=== PATIENT | female | born 1940 | race Caucasian/White ===

== ENCOUNTER → 2016-06-11 | Outpatient (CLI) | payer MEDICARE ==
[2016-06-11 17:48] LABS: APPEARANCE,URINE CLOUDY; BILIRUBIN,URINE SMALL (NEGATIVE); GLUCOSE, URINE NEGATIVE (NEGATIVE); KETONES,URINE NEGATIVE (NEGATIVE); LEUKOCYTE ESTERASE,URINE LARGE (NEGATIVE); NITRITE,URINE POSITIVE (NEGATIVE); PROTEIN,URINE 100 mg/dL (NEGATIVE); URINE SPECIFIC GRAVITY 1.026
== END ==
LOC: OD 14:07
PROVIDERS: ATTEND Internal Medicine
DX: N39.0 Urinary tract infection, site not specified (principal)
CPT/HCPCS: 81001; 87086; 87088; 87186

== ENCOUNTER 2016-06-20 13:33 | Observation (INO) | payer MEDICARE ==
[2016-06-20] MEDS ORDERED: NORMAL SALINE 500 ML IV PRN (14:26)
[2016-06-20 16:04] LABS: ABSOLUTE EOSINOPHILS # (AUTO) 0.1 10^3/uL (0.0-0.6); ABSOLUTE LYMPHOCYTES (AUTO) 0.7 10^3/uL (0.5-4.7); ABSOLUTE MONOCYTES (AUTO) 0.8 10^3/uL (0.1-1.4); ABSOLUTE NEUT (AUTO) 3.1 10^3/uL (1.7-8.2); BASOPHILS % (AUTO) 0.8 % (0-2); EOSINOPHILS % (AUTO) 1.1 % (0-6); HEMATOCRIT 36.8 % (36.0-47.0); HEMOGLOBIN 11.9 g/dL (12.0-15.5); HGB HCT DIFFERENCE -1.1; LYMPHOCYTES % (AUTO) 14.6 % (13-45); MEAN CORPUSCULAR HGB CONC 32.3 g/dL (32.0-36.0); MEAN CORPUSCULAR VOLUME 84 fl (80-97); MONOCYTES % (AUTO) 17.8 % (3-13); RED CELL DISTRIBUTION WIDTH 16.8 % (11.5-14.0); SEGMENTED NEUTROPHILS % (AUTO) 65.7 % (42-78); WHITE BLOOD COUNT 4.7 10^3/uL (4.0-10.5)
[2016-06-20 16:26] LABS: ALANINE AMINOTRANSFERASE 21 U/L (9-52); ALBUMIN 2.9 g/dL (3.5-5.0); ALKALINE PHOSPHATASE 94 U/L (38-126); ANION GAP 6 (5-19); ASPARTATE AMINO TRANSFERASE 12 U/L (14-36); BILIRUBIN,TOTAL 0.7 mg/dL (0.2-1.3); BLOOD UREA NITROGEN 16 mg/dL (7-20); CALCIUM 9.1 mg/dL (8.4-10.2); CARBON DIOXIDE 31 mmol/L (22-30); CHLORIDE 102 mmol/L (98-107); CREATININE RESULT 0.61 mg/dL (0.52-1.25); GLUCOSE 89 mg/dL (75-110); POTASSIUM 3.6 mmol/L (3.6-5.0); SODIUM 139.3 mmol/L (137-145); TOTAL PROTEIN 5.3 g/dL (6.3-8.2)
[2016-06-20 16:50] LABS: APPEARANCE,URINE SLIGHTLY-CLOUDY; BILIRUBIN,URINE NEGATIVE (NEGATIVE); GLUCOSE, URINE NEGATIVE (NEGATIVE); KETONES,URINE 20 mg/dL (NEGATIVE); LEUKOCYTE ESTERASE,URINE NEGATIVE (NEGATIVE); NITRITE,URINE NEGATIVE (NEGATIVE); PROTEIN,URINE 30 mg/dL (NEGATIVE); URINE SPECIFIC GRAVITY 1.024
--- NOTE | 2016-06-20 17:47 | ER Document Report ---
ED General - General Chief Complaint: General Weakness Stated Complaint: GENERAL WEAKNESS Time seen by provider: 17:39 Mode of Arrival: Medic Information source: Relative Notes: This is a 75-year-old female brought into the emergency room after being found on the floor of her home. Patient is accompanied by her granddaughter that says that the patient is been very weak, not eating, not drinking. TRAVEL OUTSIDE OF THE [place] IN LAST 30 DAYS: No - HPI Onset: Just prior to arrival Onset/Duration: Sudden Quality of pain: No pain Severity: None Pain Level: Denies Associated symptoms: denies: Chest pain, Fever Exacerbated by: Denies Relieved by: Denies Similar symptoms previously: Yes Recently seen / treated by doctor: Yes - Related Data Allergies/Adverse Reactions: ampicillin [Ampicillin] Allergy (Verified 08/26/15 22:44) codeine [Codeine] Allergy (Verified 08/26/15 22:44) flurazepam HCl [From [place]] Allergy (Verified 08/26/15 22:44) Home Medications: Current Home Medications Atorvastatin Calcium [Lipitor 10 mg Tablet] 10 mg PO DAILY 06/20/16 [History] Cetirizine HCl [Zyrtec 10 mg Tablet] 1 tab PO PRN PRN 06/20/16 [History] Dexlansoprazole [Dexilant 60 mg Capsule] 60 mg PO DAILY 06/20/16 [History] Escitalopram Oxalate [Lexapro 10 mg Tablet] 10 mg PO DAILY 06/20/16 [History] Fentanyl [Duragesic 50 Mcg/Hr Transdermal Patch] 1 each TD Q3D 06/20/16 [History ] Gabapentin [Neurontin 300 mg Capsule] 300 mg PO DAILY 06/20/16 [History] Gabapentin [Neurontin 300 mg Capsule] 600 mg PO QPM 06/20/16 [History] Ibandronate Sodium [Boniva] 150 mg PO ASDIR 06/20/16 [History] Mirtazapine 7.5 mg PO QHS 06/20/16 [History] Nitrofurantoin Monohyd/M-Cryst [Nitrofurantoin [place]-Mcr 100 mg] 100 mg PO BID [History] Risperidone 4 mg PO QHS 06/20/16 [History] Rivaroxaban [Xarelto 10 mg Tablet] 10 mg PO BID 06/20/16 [History] Sulfamethoxazole/Trimethoprim [Bactrim Ds Tablet] 1 each PO DAILY 06/20/16 [ History] Tolterodine Tartrate [Detrol] 2 mg PO BID 06/20/16 [History] Trazodone HCl [Desyrel 50 mg Tablet] 50 mg PO HSP PRN 06/20/16 [History] Umeclidinium Brm/Vilanterol Tr [Anoro Ellipta 62.5-25 Mcg INH] 1 each IH DAILY 06/20/16 [History] Past Medical History - General Information source: Patient - Social History Smoking Status: Never Smoker Cigarette use (# per day): No Chew tobacco use (# tins/day): No Frequency of alcohol use: None Drug Abuse: None Lives with: Family Family History: Reviewed & Not Pertinent - Past Medical History Cardiac Medical History: Reports: Hx Congestive Heart Failure, Hx Hypercholesterolemia Pulmonary Medical History: Reports: Hx Bronchitis, Hx COPD GI Medical History: Reports: Hx Gastroesophageal Reflux Disease, Hx Hiatal Hernia Musculoskeltal Medical History: Reports Hx Arthritis Psychiatric Medical History: Reports: Hx Depression Past Surgical History: Reports: Hx Appendectomy, Hx Cardiac Surgery - Bypass x5 , Hx Cholecystectomy, Hx Hysterectomy - Immunizations Hx Diphtheria, Pertussis, Tetanus Vaccination: No Review of Systems - Review of Systems Notes: Review of systems: Constitutional: Denies fever, chills. EENT: Denies ear pain, sinus tenderness, throat pain, throat swelling. Cardiovascular: Denies chest pain, palpitations, dyspnea or edema. Respiratory: Denies wheezing, cough, hemoptysis. Abdomen: Denies abdominal pain, nausea, vomiting, diarrhea. Denies BRBPR or melena. Genitourinary: Denies dysuria, pyuria, hematuria, flank pain. Musculoskeletal: See H&P Neurologic: See H&P Skin: Denies rash, lesions. Physical Exam - Vital signs Vitals: Temp Pulse Resp BP Pulse Ox 98.3 F 90 18 132/82 H 96 06/20/16 22:18 06/20/16 22:18 06/20/16 22:18 06/20/16 22:18 06/20/16 22:18 Notes: Physical exam: GENERAL: This is a 75-year-old female that is lying in the stretcher, appears dehydrated, appears weak. She is alert and does talk. HEAD: Atraumatic, normocephalic. EYES: Pupils equal round and reactive to light, extraocular movements intact, sclera anicteric, conjunctiva are normal. ENT: TMs normal, nares patent, oropharynx clear without exudates. Moist mucous membranes. NECK: Patient does have torticollis in her neck which apparently is baseline. LUNGS: Breath sounds clear to auscultation bilaterally and equal. No wheezes rales or rhonchi. HEART: Regular rate and rhythm without murmurs, rubs or gallops. ABDOMEN: Soft, normoactive bowel sounds. No tenderness to palpation. No guarding, no rebound. No masses appreciated. EXTREMITIES: Left chronic knee wound which is dry and intact. Chronic 1+ edema bilaterally. She does have a hematoma over the right knee. NEUROLOGICAL: Cranial nerves II through XII grossly intact. PSYCH: Very weak in appearance SKIN: As noted above. Course - Vital Signs Vital signs: Temp Pulse Resp BP Pulse Ox 98.3 F 90 18 132/82 H 96 06/20/16 22:18 06/20/16 22:18 06/20/16 22:18 06/20/16 22:18 06/20/16 22:18 - Laboratory Result Diagrams: 06/20/16 15:42 06/20/16 15:42 Laboratory results interpreted by me: 06/20/16 06/20/16 06/20/16 15:42 15:42 15:42 Hgb 11.9 L RDW 16.8 H Monocytes % 17.8 H PT 16.0 H Carbon Dioxide 31 H AST 12 L Total Protein 5.3 L Albumin 2.9 L Vitamin B12 Urine Protein Urine Ketones Urine Urobilinogen 06/20/16 06/20/16 15:42 16:25 Hgb RDW Monocytes % PT Carbon Dioxide AST Total Protein Albumin Vitamin B12 160.0 L Urine Protein 30 H Urine Ketones 20 H Urine Urobilinogen 2.0 H Discharge - Discharge Clinical Impression: generalized weakness, fall Condition: Stable Disposition: ADMITTED OBSERVATION Admitting Provider: Hospitalist - Dr. Alba
[2016-06-20] MEDS ORDERED: IPRATROPIUM/ALBUTEROL 0.5-2.5 MG/3 ML AMPUL NEB PRN (18:34)
[2016-06-20] MEDS ORDERED: ONDANSETRON HCL INJ/PF 4 MG/2 ML SDV IV PRN (18:39)
[2016-06-20] MEDS ORDERED: MAGNESIUM HYDROXIDE SUSP 30 ML UDCUP PO PRN (18:39)
[2016-06-20 19:16] LABS: MAGNESIUM 1.9 mg/dL (1.6-2.3); PHOSPHORUS 3.2 mg/dL (2.5-4.5)
[2016-06-20 19:27] LABS: CREATINE KINASE MB 0.55 ng/mL (<4.55); TROPONIN I < 0.012 ng/mL
--- NOTE | 2016-06-20 19:32 | PDOC H&P ---
History of Present Illness Admission Date/PCP: PMA WEBB, Patient complains of: Weakness History of Present Illness: ANGELIC HOUGH is a 75 year old female presents from home by EMS after several falls over the last couple of days. She states she's getting progressively weaker. She normally lives at home and is wheelchair bound but able to transition from [id number] and then ambulate her wheelchair around the house. She states in doing so 2 days ago she missed the chair and fell onto her knees and had to call for help to get back up. She refuses come to Hospital at that time. She is just finishing a course of antibiotics for urinary tract infection diagnosed in mid May and states ever since starting the antibiotics her appetite has been very poor. Over the last 24 hours she's had very little oral intake. She denies abdominal pain, nausea, vomiting or diarrhea. She denies chest pain, shortness of breath, syncope or presyncope, numbness tingling, unilateral weakness, difficulty swallowing, headache or vision changes. Evaluation in the emergency department is largely unrevealing but the patient is too weak to be able to transition back home to independent living so we were asked to admit for further evaluation of her weakness. Past Medical History Cardiac Medical History: Reports: Congestive Heart Failure, Hyperlipidema Pulmonary Medical History: Reports: Bronchitis, Chronic Obstructive Pulmonary Disease (COPD) GI Medical History: Reports: Gastroesophageal Reflux Disease, Hiatal Hernia Musculoskeltal Medical History: Reports: Arthritis Psychiatric Medical History: Reports: Depression Hematology: Reports: Anemia Past Surgical History Past Surgical History: Reports: Appendectomy, Cholecystectomy, Hysterectomy, Orthopedic Surgery - Knee surgery Social History Information Source: Patient Lives with: Alone Smoking Status: Unknown if Ever Smoked Frequency of Alcohol Use: None Hx Recreational Drug Use: No Drugs: None Hx Prescription Drug Abuse: No - Advance Directive Resuscitation Status: Full Code Family History Family History: Reviewed & Not Pertinent Parental Family History Reviewed: Yes Children Family History Reviewed: Yes Sibling(s) Family History Reviewed.: Yes Medication/Allergy Home Medications: Dexlansoprazole [Dexilant 60 mg Capsule] 60 mg PO DAILY 06/02/15 Olopatadine HCl [Pataday] 2.5 ml OP DAILY 06/02/15 Tiotropium [place] [Spiriva Handihaler 18 mcg/dose (30 Dose)] 1 cap IH DAILY 09/10 Atorvastatin Calcium [Lipitor 10 mg Tablet] 10 mg PO QHS #0 tablet 06/14/15 Budesonide/Formoterol Fumarate [Symbicort HFA 160-4.5 mcg Inhaler 6 gm] 2 puff IH Q12 #0 inhaler 06/14/15 Cetirizine HCl [Zyrtec 10 mg Tablet] 10 mg PO DAILY #0 tablet 06/14/15 Rivaroxaban [Xarelto 10 mg Tablet] 10 mg PO BID 07/12/15 Fentanyl [Duragesic 100 Mcg/Hr Transdermal Patch] 1 each TD Q3D@10 patch.td72 07/16/15 Fentanyl [Duragesic 50 Mcg/Hr Transdermal Patch] 1 each TD Q3D@10 patch.td72 Cyclosporine 0.05% Oph Emulsio [Restasis 0.05% Oph Emulsion Pf 0.4 ml] 2 drop OU BID 08/26/15 Hydromorphone HCl [Dilaudid 2 mg Tablet] 2 mg PO Q6 08/26/15 Trazodone HCl [Desyrel 50 mg Tablet] 50 mg PO DAILY 08/26/15 Metronidazole [Flagyl 500 mg Tablet] 500 mg PO BID #14 tablet 09/21/15 Allergies/Adverse Reactions: ampicillin [Ampicillin] Allergy (Verified 08/26/15 22:44) codeine [Codeine] Allergy (Verified 08/26/15 22:44) flurazepam HCl [From Dalmane] Allergy (Verified 08/26/15 22:44) Review of Systems Constitutional: PRESENT: fatigue, weakness. ABSENT: chills, fever(s), headache( s), night sweats, weight gain, weight loss Eyes: ABSENT: visual disturbances Ears: ABSENT: hearing changes Cardiovascular: ABSENT: chest pain, dyspnea on exertion, edema, orthropnea, palpitations Respiratory: ABSENT: cough, dyspnea, hemoptysis Gastrointestinal: ABSENT: abdominal pain, constipation, diarrhea, dysphagia, hematemesis, hematochezia, nausea, vomiting Genitourinary: ABSENT: dysuria, hematuria Musculoskeletal: PRESENT: as per HPI, joint swelling - Swelling of both knees after her fall, muscle weakness Integumentary: ABSENT: rash, wounds Neurological: PRESENT: frequent falls. ABSENT: abnormal gait, abnormal speech, confusion, dizziness, focal weakness, numbness, paresthesias, syncope Psychiatric: ABSENT: anxiety, depression Endocrine: ABSENT: cold intolerance, heat intolerance, polydipsia, polyuria Hematologic/Lymphatic: PRESENT: easy bruising. ABSENT: easy bleeding Physical Exam Vital Signs: PHYSICAL EXAM GENERAL: NAD; well developed; some muscle wasting noted of the extremities; alert and oriented to person, place, time, situation, speaks in a very soft voice HEENT: normocephalic, atraumatic; EOMI, PERRLA, no conjunctival injection, no scleral icterus; oral mucosa dry, neck supple, no LAD, normal ROM RESPIRATORY: no accessory muscle use, no increased WOB, good air entry bilaterally; no wheezes, rales, rhonchi; mild bibasilar inspiratory crackles CARDIO: no JVD; RRR; no systolic murmur; no tachycardia VASCULAR: no pallor; 2+ radial, DP pulse; GI: soft; nondistended; normal bowel sounds; no hepato spleno megaly; no rebound, rigidity, guarding; nontender NEURO: normal sensation; decreased motor function bilaterally legs strength 2 out of 5; nonambulatory; no dysarthria; no nystagmus; tongue protrudes midline; MSK: Bilateral knees right greater than left are edematous; right leg from the lateral aspect of the hip down to the knee and then encompassing most of the pretibial area is quite ecchymotic appears deep purple suggesting at least 2-3 days old; left lower extremity shows old ecchymotic areas in the pretibial and calf that appear to be about a week old. No fluctuant mass or fluid collection identified. Passive range of motion elicits some discomfort in the bilateral knees right greater than left. There is crepitus palpable in the right greater than left. EXTREMITIES: no palpable cords in calf; no clubbing, cyanosis; 1+ pedal edema PSYCH: normal affect, normal mood SKIN: Cool; moist; no jaundice; no rash Results Laboratory Results: 06/20/16 15:42 06/20/16 15:42 06/20/16 06/20/16 06/20/16 15:42 15:42 16:25 WBC 4.7 RBC 4.40 Hgb 11.9 L Hct 36.8 MCV 84 MCH 27.0 MCHC 32.3 RDW 16.8 H Plt Count 311 Seg Neutrophils % 65.7 Lymphocytes % 14.6 Monocytes % 17.8 H Eosinophils % 1.1 Basophils % 0.8 Absolute Neutrophils 3.1 Absolute Lymphocytes 0.7 Absolute Monocytes 0.8 Absolute Eosinophils 0.1 Absolute Basophils 0.0 Sodium 139.3 Potassium 3.6 Chloride 102 Carbon Dioxide 31 H Anion Gap 6 BUN 16 Creatinine 0.61 Est GFR ( Amer) > 60 Est GFR (Non-Af Amer) > 60 Glucose 89 Calcium 9.1 Total Bilirubin 0.7 AST 12 L ALT 21 Alkaline Phosphatase 94 Total Protein 5.3 L Albumin 2.9 L Urine Color RADHA Urine Appearance SLIGHTLY-CLOUDY Urine pH 6.0 Ur Specific Protem 1.024 Urine Protein 30 H Urine Glucose (UA) NEGATIVE Urine Ketones 20 H Urine Blood NEGATIVE Urine Nitrite NEGATIVE Ur Leukocyte Esterase NEGATIVE Urine WBC (Auto) 1 Urine RBC (Auto) 16 Labs reviewed and relatively unremarkable Impressions: Chest X-Ray 06/20/16 14:27 IMPRESSION: Cardiomegaly. No acute findings Status: Image reviewed by me - Don't see any focal airspace disease or acute pathology Assessment & Plan - Diagnosis (1) Generalized weakness Is this a current diagnosis for this admission?: YesPlan: Admit for gentle IV fluids, physical and occupational therapy evaluation. She is too unstable for discharge home at this time, will likely require some rehabilitation. Unfortunately she has no admitting diagnosis has yet and so the [place] will fall to the family to find appropriate placement for her. Will check for metabolic derangements with a magnesium, phosphorus, B12, TSH and evaluate for CK, CK-MB and troponin. (2) Coronary artery disease Qualifiers: Coronary Disease-Associated Artery/Lesion type: [place] artery [place] vs. transplanted heart: [place] heart Associated angina: angina presence unspecified Qualified Code(s): I25.10 - Atherosclerotic heart disease of [place] coronary artery without angina pectoris Is this a current diagnosis for this admission?: YesPlan: She does not endorse any cardiac-type symptoms. Check an EKG. Clarify her home regimen and continue. (3) Decreased oral intake Is this a current diagnosis for this admission?: YesPlan: Generally hydrated. Encourage oral intake. (4) Contusion of knee and lower leg Is this a current diagnosis for this admission?: YesPlan: Check x-rays of the bilateral lower extremities to rule out occult fracture. - Time Time Spent: 50 to 70 Minutes Medications reviewed and adjusted accordingly: Yes Anticipated discharge: Other - Disposition is unclear at this time, family was not available for consultation when I saw her.
[2016-06-21] MEDS: NORMAL SALINE 1000 ML 1,000 ML IV PRN ×2 (00:26→11:18)
[2016-06-21] MEDS: ACETAMINOPHEN 325 MG TABLET PO PRN (00:31)
[2016-06-21] MEDS: LANSOPRAZOLE 30 MG TAB.RAP.DR PO SCH ×2 (05:41→17:21)
[2016-06-21] MEDS: DOCUSATE SODIUM 100 MG CAPSULE PO SCH (11:15)
[2016-06-21] MEDS ORDERED: DEXAMETHASONE SOD PHOS INJ 10 MG/1 ML VIAL IV ONE (12:15)
[2016-06-21] MEDS ORDERED: CYANOCOBALAMIN (VITAMIN B-12) INJ 1000 MCG/1 ML VIAL IM ONE (12:30)
--- NOTE | 2016-06-21 16:06 | PDOC PROGRESS REPORT ---
Subjective Progress Note for:: 06/21/16 Subjective:: Reason for visit: Follow-up weakness Hospital course:ANGELIC HOUGH is a 75 year old female presents from home by EMS after several falls over the last couple of days. She states she's getting progressively weaker. She normally lives at home and is wheelchair bound but able to transition from [id number] and then ambulate her wheelchair around the house. She states in doing so 2 days ago she missed the chair and fell onto her knees and had to call for help to get back up. She refuses come to Hospital at that time. She is just finishing a course of antibiotics for urinary tract infection diagnosed in mid May and states ever since starting the antibiotics her appetite has been very poor. Over the last 24 hours she's had very little oral intake. She denies abdominal pain, nausea, vomiting or diarrhea. She denies chest pain, shortness of breath, syncope or presyncope, numbness tingling, unilateral weakness, difficulty swallowing, headache or vision changes. Evaluation in the emergency department is largely unrevealing but the patient is too weak to be able to transition back home to independent living so we were asked to admit for further evaluation of her weakness. Patient was admitted and gently hydrated through the course of the night with little change in her general condition. Evaluation remains unrevealing aside from a very low B12 level which could be contributing to some of her presentation. Subjective: Patient continues to complain of generalized weakness and nursing reports she is largely sleeping all the time and requires 2 people assist for transfers, toileting, etc. She denies chest pain, palpitations, headache, dizziness, fever, chills, nausea vomiting or diarrhea. ROS: per HPI plus a total of 10 systems reviewed, pertinent positives and negatives noted above, remaining systems negative. Physical Exam Vital Signs: Temp Pulse Resp BP Pulse Ox 98.4 F 97 20 143/84 H 95 06/21/16 11:52 06/21/16 11:52 06/21/16 11:52 06/21/16 11:52 06/21/16 11:52 Intake & Output 06/20/16 06/21/16 06/22/16 06:59 06:59 06:59 Intake Total 200 Output Total 350 Balance -150 Weight 78.7 kg EXAM GENERAL: NAD; well developed; some muscle wasting noted of the extremities; alert and oriented to person, place, time, situation, speaks in a very soft voice HEENT: normocephalic, atraumatic; EOMI, no conjunctival injection, no scleral icterus; RESPIRATORY: no accessory muscle use, no increased WOB, good air entry bilaterally; no wheezes, rales, rhonchi; mild bibasilar inspiratory crackles persist CARDIO: no JVD; RRR; no systolic murmur; no tachycardia VASCULAR: no pallor; 2+ radial, DP pulse; GI: soft; nondistended; normal bowel sounds; no rebound, rigidity, guarding; nontender NEURO: normal sensation; decreased motor function bilaterally legs strength 2 out of 5; nonambulatory; no dysarthria; tongue protrudes midline; MSK: Bilateral knees right greater than left are edematous with small effusions in the joint space; right leg from the lateral aspect of the hip down to the knee and then encompassing most of the pretibial area remains quite ecchymotic though appears deep purple suggesting at least several days old; left lower extremity shows old ecchymotic areas in the pretibial and calf that appear at least a week old. Passive range of motion elicits some discomfort in the bilateral knees right greater than left. There is crepitus palpable in the right greater than left. EXTREMITIES: no palpable cords in calf; no clubbing, cyanosis; 1+ pedal edema PSYCH: normal affect, normal mood SKIN: Cool; moist; no jaundice; no rash Results Laboratory Results: 06/21/16 05:50 TSH 3.66 Labs reviewed and B12 level is quite low, the rest of her labs are unremarkable. Impressions: Hip X-Ray 06/20/16 00:00 IMPRESSION: No fracture or dislocation identified in the pelvis or hips. Knee X-Ray 06/20/16 00:00 IMPRESSION: No acute fracture. Small effusion. Chest X-Ray 06/20/16 14:27 IMPRESSION: Cardiomegaly. No acute findings Status: Imported from PACS - Reports reviewed Assessment & Plan - Diagnosis (1) Generalized weakness Is this a current diagnosis for this admission?: YesPlan: Admitted for gentle IV fluids, physical and occupational therapy evaluation. She remains unable to care for herself to allow discharge home at this time, will likely require some rehabilitation. Unfortunately she has no admitting diagnosis as yet and so the burden will fall to the family to find appropriate placement for her. We'll consult palliative care to help clarify goals of care. (2) Coronary artery disease Qualifiers: Coronary Disease-Associated Artery/Lesion type: [place] artery [place] vs. transplanted heart: [place] heart Associated angina: angina presence unspecified Qualified Code(s): I25.10 - Atherosclerotic heart disease of [place] coronary artery without angina pectoris Is this a current diagnosis for this admission?: YesPlan: She still does not endorse any cardiac-type symptoms. EKG nondiagnostic for acute ischemia, cardiac enzymes also negative. Clarify her home regimen and continue. (3) Decreased oral intake Is this a current diagnosis for this admission?: YesPlan: Encourage oral intake. Change IV fluids to a banana bag daily so she gets some trace elements. Give a single dose of Decadron to see if we can loosen her up from her osteoarthritis well also stimulating her diet. (4) Contusion of knee and lower leg Is this a current diagnosis for this admission?: YesPlan: x-rays of bilateral lower extremities and pelvis ruled out occult fracture. Okay to continue physical therapy hoping to improve strength and ability to return to baseline which is independent transfers. (5) B12 deficiency Is this a current diagnosis for this admission?: YesPlan: Begin daily replacement - Time Time Spent with patient: 25-34 minutes Anticipated discharge: Other - Unclear disposition at this time, awaiting family 's input
--- NOTE | 2016-06-21 16:55 | EKG REPORT ---
SEVERITY:- ABNORMAL ECG - SINUS RHYTHM BORDERLINE R WAVE PROGRESSION, ANTERIOR LEADS NONSPECIFIC T ABNORMALITIES, LATERAL LEADS : Confirmed by: Mayuri Polo MD 21-Jun-2016 16:55:02
[2016-06-21] MEDS: RIVAROXABAN 10 MG TABLET PO SCH (17:21)
[2016-06-21] MEDS: GABAPENTIN 300 MG CAPSULE PO SCH (17:22)
[2016-06-21] MEDS: NORMAL SALINE 1000 ML 1,000 ML with POTASSIUM CHLORIDE 20 MEQ, MAGNESIUM SULFATE 8 MEQ,... IV PRN ×5 (17:23)
--- NOTE | 2016-06-21 17:59 | Palliative Consultation Report ---
Consultation Consult Reason: Palliative care - HPI HPI: Appreciate consult request with this 75 year old lady who was admitted through ER for extreme weakness after UTI. She has fallen twice in her home and now is unable to bear weight on her legs or turn in the bed alone. Mrs. London is alert and able to give me a lot of her history although speaking is difficult for her due to swollen, dry tongue. SHe tells me that she lives at home with her son who works realtime captioner. She has been wheelchair bound for about ten years following an open wound in her left thigh. She could not tell me the cause of the wound, but says until this past week, she managed well at home. She could pivot from bed to chair and to toilet. However, she fell twice this past week and has soft tissue injury the length of her left leg and both knees are swollen. Mrs. London says she has had a decubitus ulcer on her coccyx area for the past 3 -4 years which causes her a great deal of pain. SHe sees her doctor monthly and he prescribes fentanyl transdermal to control her pain, which she says helps but doesnt totally relieve pain. Her appetite was good until she got a UTI a few weeks ago and she has not had much appetite since then. She reports that it is hard for eat in a slightly reclining position, but it is too painful on her bedsore to sit straight up. Patient reports that he hospital bed at home needs a new mattress and she is hoping to get one in June. She denies having any overlay for it and says it is uncomfortable. She denies having any cushion in her wheelchair. She has a home telephone but does not have any life alert or other means of calling for help if she cannot reach phone. She reports having home health PT on and off. I did discuss advance directives with her after establishing that she is alert and oriented and able to be decisional about her care. She said she would not want a feeding tube. She also does not want CPR or intubation. She feels her disease process is progressive and she is ready if comes. She wants to be kept comfortable and with dignity without the stress of machines or deciaions for her family to make. Onset: Last week Onset/Duration: Gradual Quality of Pain: Dull, Throbbing Severity: Moderate Pain Level: 2 Associated Symptoms: Leg swelling, Weakness Exacerbated by: Movement Relieved by: Remaining still Past Medical History(Consults) - General Information Source: Patient, [facility] Records Home Medications: Atorvastatin Calcium [Lipitor 10 mg Tablet] 10 mg PO DAILY 06/20/16 Cetirizine HCl [Zyrtec 10 mg Tablet] 1 tab PO DAILYP PRN 06/20/16 Dexlansoprazole [Dexilant 60 mg Capsule] 60 mg PO DAILY 06/20/16 Escitalopram Oxalate [Lexapro 10 mg Tablet] 10 mg PO DAILY 06/20/16 Fentanyl [Duragesic 50 Mcg/Hr Transdermal Patch] 1 each TD Q3D 06/20/16 Gabapentin [Neurontin 300 mg Capsule] 300 mg PO BID 06/20/16 Gabapentin [Neurontin 300 mg Capsule] 600 mg PO QHS 06/20/16 Ibandronate Sodium [Boniva] 150 mg PO ASDIR 06/20/16 Mirtazapine 7.5 mg PO QHS 06/20/16 Risperidone 4 mg PO QHS 06/20/16 Rivaroxaban [Xarelto 10 mg Tablet] 10 mg PO Q12 06/20/16 Tolterodine Tartrate [Detrol] 2 mg PO BID 06/20/16 Trazodone HCl [Desyrel 50 mg Tablet] 50 mg PO HSP PRN 06/20/16 Umeclidinium Brm/Vilanterol Tr [Anoro Ellipta 62.5-25 Mcg INH] 1 puff IH DAILY 06/20/16 Fluticasone Propionate [Flonase Nasal Ancram 50 Mcg/Ancram 16 gm] 1 spray NASL BID 06/21/16 Allergies/Adverse Reactions: ampicillin [Ampicillin] Allergy (Verified 08/26/15 22:44) codeine [Codeine] Allergy (Verified 08/26/15 22:44) flurazepam HCl [From [place]] Allergy (Verified 08/26/15 22:44) - Social History Lives with: Family Family History: Reviewed & Not Pertinent Parental Family History Reviewed: No Children Family History Reviewed: No Sibling(s) Family History Reviewed.: No Smoking Status: Never Smoker Frequency of Alcohol Use: None Hx Recreational Drug Use: No Drugs: None Hx Prescription Drug Abuse: No - Past Medical History Cardiac Medical History: Reports: Hx Congestive Heart Failure, Hx Hypercholesterolemia Pulmonary Medical History: Reports: Hx Bronchitis, Hx COPD GI Medical History: Reports: Hx Gastroesophageal Reflux Disease, Hx Hiatal Hernia Musculoskeltal Medical History: Reports Hx Arthritis, Reports Hx Muscle Weakness , Reports Hx Musculoskeletal Deformity - foot drop Psychiatric Medical History: Reports: Hx Depression Hematology: Reports: Anemia - Surgical History Past Surgical History: Reports: Hx Appendectomy, Hx Cardiac Surgery - Bypass x5 , Hx Cholecystectomy, Hx Hysterectomy, Hx Orthopedic Surgery - Knee surgery Review of systems Constitutional: Malaise, Weakness EENT: Mouth swelling Cardiovascular: No symptoms reported Respiratory: No symptoms reported Gastrointestinal: Poor appetite, Poor fluid intake Geniturinary: Burning Female Genitourinary: No symptoms reported Musculoskeltal: Joint pain, Joint swelling, Muscle stiffness, Leg swelling Neurological/Psychological: Depression, Weakness Ojective:Exam Vital Signs: Temp Pulse Resp BP Pulse Ox 98.4 F 97 20 143/84 H 95 06/21/16 11:52 06/21/16 11:52 06/21/16 11:52 06/21/16 11:52 06/21/16 11:52 Intake & Output 06/20/16 06/21/16 06/22/16 06:59 06:59 06:59 Intake Total 200 Output Total 350 Balance -150 Weight 78.7 kg - General Note:: Awake, alert, cheerful, but weak. Able to tell me much of her history with some difficulty speech. Sts she does have pain in spite of fentanyl patch. Reports lack of appetite and difficulty eating. - HEENT Head: Atraumatic Eyes: Normal Conjunctiva: Normal Nasal: Normal Mouth/Lips: Other - Tongue swollen, dry Mucous membrane: Dry - Neck Neck: Supple - Respiratory Respiratory Status: No respiratory distress Breath sounds: Clear - Speaks in whisper but no conversational dyspnea noted - Cardiovascular Rhythm: Regular Pulses: Normal: Radial - Abdominal Inspection: Hernia Distension: No distension Bowel Sounds: Hypoactive - Extremities Lower extremities: Tender - eccymosis entire length right lower extremitiy, and also left knee area, Edema - Neurological Orientation: Alert, Oriented to person, Oriented to place, Oriented to time Speech: Normal Cranial nerves: Normal Motor exam: Weakness - Psychological Associated symptoms: Anxious - Skin Skin Color: Ecchymosis Location of irregularity: Extremities Objective-Diagnostic Laboratory: 06/21/16 05:50 TSH 3.66 Plan and Recommendation Plan and Recommendation: Patient states she wants to be DNR, would not want intubation or life prolonging machines. She said she would not want feeding tube. Patient alert, oriented and decisional at time of conversation. Patient is expecting to go back home with her son. However, that may not be possible. She says home health is supposed to come see her. If she should return home she needs some sort of life alert system in case of another fall. She also needs specialty mattress for her hospital bed and cushion for her wheelchair to prevent further pressure injury to her skin on coccyx/sacral area. I will be happy to follow with patient at home for palliative care if she does return home. If she continues to decline, she will most likely need placement. I feel the SNF placement for skilled care for her injuries, decubs and rehab PT would be beneficial for this patient following this admission. - Time Spent with Patient Time spent with patient: 40 to 60 Minutes - 35 minutes with patient
[2016-06-21] MEDS ORDERED: (PENDING PHARMACY ID) (Tolterodine Tartrate [Detrol] 2 MG) PO SCH (18:00)
--- NOTE | 2016-06-21 18:02 | Progress Note ---
Provider Note Provider Note: During Palliative Care consult visit, Mrs. London stated she wants to be DNR/ DNI. She was alert, oriented and able to tell me much of her physical history at the time, so I feel she is decisional.
[2016-06-21] MEDS: TOLTERODINE TARTRATE 1 MG TABLET PO SCH (21:49)
[2016-06-22] MEDS: ACETAMINOPHEN 325 MG TABLET PO PRN ×2 (02:27→21:31)
[2016-06-22] MEDS: LANSOPRAZOLE 30 MG TAB.RAP.DR PO SCH ×2 (05:30→17:49)
[2016-06-22] MEDS: RIVAROXABAN 10 MG TABLET PO SCH ×2 (11:15→17:49)
[2016-06-22] MEDS: ATORVASTATIN CALCIUM 10 MG TABLET PO SCH (11:16)
[2016-06-22] MEDS: DOCUSATE SODIUM 100 MG CAPSULE PO SCH (11:16)
[2016-06-22] MEDS: GABAPENTIN 300 MG CAPSULE PO SCH ×2 (11:16→17:49)
[2016-06-22] MEDS: ESCITALOPRAM OXALATE 10 MG TABLET PO SCH (11:16)
[2016-06-22] MEDS: CYANOCOBALAMIN (VITAMIN B-12) INJ 1000 MCG/1 ML VIAL IM SCH (11:17)
[2016-06-22] MEDS: TOLTERODINE TARTRATE 1 MG TABLET PO SCH ×2 (11:17→21:29)
[2016-06-22] MEDS: CETIRIZINE 10 MG TABLET PO PRN (11:22)
--- NOTE | 2016-06-22 14:00 | PDOC PROGRESS REPORT ---
Subjective Progress Note for:: 06/22/16 Subjective:: Reason for visit: Follow-up weakness Hospital course:ANGELIC HOUGH is a 75 year old female presents from home by EMS after several falls over the last couple of days. She states she's getting progressively weaker. She normally lives at home and is wheelchair bound but able to transition from [id number] and then ambulate her wheelchair around the house. She states in doing so 2 days ago she missed the chair and fell onto her knees and had to call for help to get back up. She refuses come to Hospital at that time. She is just finishing a course of antibiotics for urinary tract infection diagnosed in mid May and states ever since starting the antibiotics her appetite has been very poor. Over the last 24 hours she's had very little oral intake. She denies abdominal pain, nausea, vomiting or diarrhea. She denies chest pain, shortness of breath, syncope or presyncope, numbness tingling, unilateral weakness, difficulty swallowing, headache or vision changes. Evaluation in the emergency department is largely unrevealing but the patient is too weak to be able to transition back home to independent living so we were asked to admit for further evaluation of her weakness. Patient was admitted and gently hydrated through the course of her first night with minimal change in her general condition. Evaluation remains unrevealing aside from a very low B12 level which could be contributing to some of her presentation. Today her performed a more thorough exam of the patient's skin which reveals a stage II sacral decubitus ulcer that she states is been there for "quite a while "; exam of the left knee shows a fistulous tract at the proximal portion of the scar that she states has been there for several years and she cleans with peroxide and packed with iodoform on a daily basis; her inner thighs just distal to her genitalia show maceration of the skin bilaterally in an area approximately 2-1/2 cm each. Subjective: Patient continues to complain of generalized weakness and nursing reports that she requires 2 people assist for transfers, toileting, etc. She denies chest pain, palpitations, headache, dizziness, fever, chills, nausea vomiting or diarrhea. ROS: per HPI plus a total of 10 systems reviewed, pertinent positives and negatives noted above, remaining systems negative. Physical Exam Vital Signs: Temp Pulse Resp BP Pulse Ox 97.7 F 85 16 139/71 H 99 06/22/16 11:42 06/22/16 11:42 06/22/16 11:42 06/22/16 11:42 06/22/16 11:42 Intake & Output 06/21/16 06/22/16 06/23/16 06:59 06:59 06:59 Intake Total 200 2379 Output Total 350 950 Balance -150 1429 Weight 78.7 kg 85 kg EXAM GENERAL: NAD; well developed; some muscle wasting noted of the extremities; alert and oriented to person, place, time, situation, speaks in a very soft voice HEENT: normocephalic, atraumatic; EOMI, no conjunctival injection, no scleral icterus; RESPIRATORY: no accessory muscle use, no increased WOB, good air entry bilaterally; no wheezes, rales, rhonchi; mild bibasilar inspiratory crackles persist CARDIO: no JVD; RRR; no systolic murmur; no tachycardia VASCULAR: no pallor; 2+ radial, DP pulse; GI: soft; nondistended; normal bowel sounds; no rebound, rigidity, guarding; nontender NEURO: normal sensation; decreased motor function bilaterally legs strength 2 out of 5; nonambulatory; no dysarthria; tongue protrudes midline; MSK: Bilateral knees right greater than left are edematous with small effusions in the joint space; EXTREMITIES: no palpable cords in calf; no clubbing, cyanosis; 1+ pedal edema PSYCH: normal affect, normal mood SKIN: Cool; moist; no jaundice; left lateral knee has a 5 mm open tract with packing in place, no surrounding erythema, no foul odor or purulent exudate, this appears to be mature; inner portion of both thighs just distal to her genitalia show 2 areas of maceration approximately 2-1/2 cm, very tender to the touch, no surrounding erythema and no purulent fluid; stage II sacral decubitus ulcer evident Assessment & Plan - Diagnosis (1) Generalized weakness Is this a current diagnosis for this admission?: YesPlan: Admitted for gentle IV fluids, physical and occupational therapy evaluation. She remains unable to care for herself to allow discharge home at this time and in my opinion would benefit from rehabilitation placement. Unfortunately she has no admitting diagnosis as yet and so the burden will fall to the family to find appropriate placement for her. Appreciate palliative care assistance to help clarify goals of care. (2) Coronary artery disease Qualifiers: Coronary Disease-Associated Artery/Lesion type: [place] artery [place] vs. transplanted heart: [place] heart Associated angina: angina presence unspecified Qualified Code(s): I25.10 - Atherosclerotic heart disease of [place] coronary artery without angina pectoris Is this a current diagnosis for this admission?: YesPlan: She does not endorse any cardiac-type symptoms. EKG nondiagnostic for acute ischemia, cardiac enzymes also negative. Clarify her home regimen and continue. (3) Decreased oral intake Is this a current diagnosis for this admission?: YesPlan: Encourage oral intake. Changed IV fluids to a banana bag daily so she gets some trace elements. Given a single dose of Decadron to see if we can loosen her up from her osteoarthritis as well as also stimulating her diet. she seems a bit more lively today though unclear if medication efect or not. (4) Contusion of knee and lower leg Is this a current diagnosis for this admission?: Yes (5) B12 deficiency Is this a current diagnosis for this admission?: YesPlan: Begin daily replacement (6) Sacral decubitus ulcer, stage II Is this a current diagnosis for this admission?: YesPlan: Present on admission. Continue attempts at offloading and topical care. (7) Fistula into joint Is this a current diagnosis for this admission?: YesPlan: Left knee; Unclear that it effectively communicates with the joint space but by history the patient reports continued weeping of clear thin fluid from the joint for the last couple of years that she treats with packing. We will resume her usual home care. - Time Time Spent with patient: 25-34 minutes Anticipated discharge: Home Within: within 48 hours
[2016-06-22] MEDS: NORMAL SALINE 1000 ML 1,000 ML with POTASSIUM CHLORIDE 20 MEQ, MAGNESIUM SULFATE 8 MEQ,... IV PRN ×5 (17:49)
[2016-06-23] MEDS: ACETAMINOPHEN 325 MG TABLET PO PRN ×2 (02:23→21:08)
[2016-06-23] MEDS: LANSOPRAZOLE 30 MG TAB.RAP.DR PO SCH ×2 (05:12→17:27)
[2016-06-23] MEDS: RIVAROXABAN 10 MG TABLET PO SCH ×2 (10:55→17:26)
[2016-06-23] MEDS: ESCITALOPRAM OXALATE 10 MG TABLET PO SCH (10:55)
[2016-06-23] MEDS: CYANOCOBALAMIN (VITAMIN B-12) INJ 1000 MCG/1 ML VIAL IM SCH (10:55)
[2016-06-23] MEDS: DOCUSATE SODIUM 100 MG CAPSULE PO SCH (10:56)
[2016-06-23] MEDS: TOLTERODINE TARTRATE 1 MG TABLET PO SCH ×2 (10:56→21:08)
[2016-06-23] MEDS: ATORVASTATIN CALCIUM 10 MG TABLET PO SCH (10:56)
[2016-06-23] MEDS: GABAPENTIN 300 MG CAPSULE PO SCH ×2 (10:56→17:26)
[2016-06-23] MEDS: CETIRIZINE 10 MG TABLET PO PRN (10:59)
--- NOTE | 2016-06-23 13:40 | PDOC PROGRESS REPORT ---
Subjective Progress Note for:: 06/23/16 Subjective:: Reason for visit: Follow-up weakness Hospital course:ANGELIC HOUGH is a 75 year old female presents from home by EMS after several falls over the last couple of days. She states she's getting progressively weaker. She normally lives at home and is wheelchair bound but able to transition from [id number] and then ambulate her wheelchair around the house. She states in doing so 2 days ago she missed the chair and fell onto her knees and had to call for help to get back up. She refuses come to Hospital at that time. She is just finishing a course of antibiotics for urinary tract infection diagnosed in mid May and states ever since starting the antibiotics her appetite has been very poor. Over the last 24 hours she's had very little oral intake. She denies abdominal pain, nausea, vomiting or diarrhea. She denies chest pain, shortness of breath, syncope or presyncope, numbness tingling, unilateral weakness, difficulty swallowing, headache or vision changes. Evaluation in the emergency department is largely unrevealing but the patient is too weak to be able to transition back home to independent living so we were asked to admit for further evaluation of her weakness. Patient was admitted and gently hydrated through the course of her first night with minimal change in her general condition. Evaluation remains unrevealing aside from a very low B12 level which could be contributing to some of her presentation. Today her performed a more thorough exam of the patient's skin which reveals a stage II sacral decubitus ulcer that she states is been there for "quite a while "; exam of the left knee shows a fistulous tract at the proximal portion of the scar that she states has been there for several years and she cleans with peroxide and packed with iodoform on a daily basis; her inner thighs just distal to her genitalia show maceration of the skin bilaterally in an area approximately 2-1/2 cm each. Subjective: She denies chest pain, palpitations, headache, dizziness, fever, chills, nausea vomiting or diarrhea. ROS: per HPI plus a total of 10 systems reviewed, pertinent positives and negatives noted above, remaining systems negative. Physical Exam Vital Signs: Temp Pulse Resp BP Pulse Ox 97.6 F 88 14 118/53 L 95 06/23/16 11:58 06/23/16 11:58 06/23/16 11:58 06/23/16 11:58 06/23/16 11:58 Intake & Output 06/22/16 06/23/16 06/24/16 06:59 06:59 06:59 Intake Total 2379 1313 Output Total 950 1025 Balance 1429 288 Weight 85 kg 85.6 kg EXAM GENERAL: NAD; well developed; some muscle wasting noted of the extremities; alert and oriented to person, place, time, situation, speaks in a very soft voice HEENT: normocephalic, atraumatic; EOMI, no conjunctival injection, no scleral icterus; RESPIRATORY: no accessory muscle use, no increased WOB, good air entry bilaterally; no wheezes, rales, rhonchi; mild bibasilar inspiratory crackles persist CARDIO: no JVD; RRR; no systolic murmur; no tachycardia VASCULAR: no pallor; 2+ radial, DP pulse; GI: soft; nondistended; normal bowel sounds; no rebound, rigidity, guarding; nontender NEURO: normal sensation; decreased motor function bilaterally legs strength 2 out of 5; nonambulatory; no dysarthria; tongue protrudes midline; MSK: Bilateral knees right greater than left are edematous with small effusions in the joint space; areas of ecchymosis improving EXTREMITIES: no palpable cords in calf; no clubbing, cyanosis; 1+ pedal edema PSYCH: normal affect, normal mood SKIN: Cool; moist; no jaundice; left lateral knee has a 5 mm open tract with packing in place, no surrounding erythema, no foul odor or purulent exudate, this appears to be mature; inner portion of both thighs just distal to her genitalia show 2 areas of maceration approximately 2-1/2 cm, very tender to the touch, no surrounding erythema and no purulent fluid; stage II sacral decubitus ulcer evident Assessment & Plan - Diagnosis (1) Generalized weakness Is this a current diagnosis for this admission?: YesPlan: Admitted for gentle IV fluids, physical and occupational therapy. She remains unable to care for herself to allow discharge home at this time and in my opinion would benefit from rehabilitation placement. Unfortunately she has no admitting diagnosis as yet and so the burden will fall to the family to find appropriate placement for her. Appreciate palliative care assistance to help clarify goals of care. Awaiting family conference on Friday at 3:30. (2) Coronary artery disease Qualifiers: Coronary Disease-Associated Artery/Lesion type: [place] artery [place] vs. transplanted heart: [place] heart Associated angina: angina presence unspecified Qualified Code(s): I25.10 - Atherosclerotic heart disease of [place] coronary artery without angina pectoris Is this a current diagnosis for this admission?: YesPlan: She does not endorse any cardiac-type symptoms. EKG nondiagnostic for acute ischemia, cardiac enzymes also negative. Clarify her home regimen and continue. (3) Decreased oral intake Is this a current diagnosis for this admission?: Yes (4) Contusion of knee and lower leg Is this a current diagnosis for this admission?: Yes (5) B12 deficiency Is this a current diagnosis for this admission?: YesPlan: Begin daily replacement (6) Sacral decubitus ulcer, stage II Is this a current diagnosis for this admission?: YesPlan: Present on admission. Continue attempts at offloading and topical care. (7) Fistula into joint Is this a current diagnosis for this admission?: YesPlan: Left knee; Unclear that it effectively communicates with the joint space but by history the patient reports continued weeping of milky thin fluid from the joint for the last couple of years that she treats with packing. We will resume her usual home care. - Time Time Spent with patient: 15-24 minutes
[2016-06-23] MEDS ORDERED: FENTANYL 50 MCG/HR PATCH.TD72 TD ONE (17:30)
[2016-06-24] MEDS: ACETAMINOPHEN 325 MG TABLET PO PRN (03:14)
[2016-06-24] MEDS: LANSOPRAZOLE 30 MG TAB.RAP.DR PO SCH ×2 (05:28→17:20)
[2016-06-24] MEDS: GABAPENTIN 300 MG CAPSULE PO SCH ×2 (10:14→17:21)
[2016-06-24] MEDS: TOLTERODINE TARTRATE 1 MG TABLET PO SCH ×2 (10:14→21:39)
[2016-06-24] MEDS: ATORVASTATIN CALCIUM 10 MG TABLET PO SCH (10:14)
[2016-06-24] MEDS: RIVAROXABAN 10 MG TABLET PO SCH ×2 (10:14→17:21)
[2016-06-24] MEDS: ESCITALOPRAM OXALATE 10 MG TABLET PO SCH (10:14)
[2016-06-24] MEDS: DOCUSATE SODIUM 100 MG CAPSULE PO SCH (10:14)
[2016-06-24] MEDS: CYANOCOBALAMIN (VITAMIN B-12) INJ 1000 MCG/1 ML VIAL IM SCH (10:15)
[2016-06-24] MEDS: CETIRIZINE 10 MG TABLET PO PRN (10:19)
[2016-06-24] MEDS: HYDROCODONE/ACETAMINOPHEN 5-325 MG TABLET PO PRN ×2 (10:21→17:20)
--- NOTE | 2016-06-24 13:22 | Progress Note ---
Provider Note Provider Note: Palliative Care follow up visit. S: Mrs. London is awake and seems much stronger today. She is concerned because the doctor wants to talk to her family about sending her to rehab but she doesnt want to go. She tells me she is still having a lot of pain anytime she tries to meove and she cannot reposition herself in her bed. She knows she cannot stand on her own. When asked how she thought she could manage at home without being able to stand, she said she would "figure it out". O:Patient is eating better today and is able to feed herself but still has difficulty getting into position for reaching her tray. She has stronger voice and no respiratory distress noted, breath sounds clear. She does not move her legs in the bed because she complains of too much pain with movement. Bruising continues on right leg with edema still left knee. Less painful to palpate. A:P Pain: Patient continues to be on the fentanyl transdermal patch at 50 mCg as she was at home, but may need that to be increased. Decreased appetite/ Anxiety over placement in SNF: may also benefit from increase in mirtazapine at hs to 15 mg to continue to help with appetite and depression. Family cannot afford assisted living and patient is requiring too much care for JUAN now. She needs fpc for decubitus and also will need PT to help rehab if possible. I do not know if they could afford help at home while son is at work, but patient would benefit from rehab and hopefully will agree to go. Advance directions: Appreciate change to DNR since this is patients wish. Appreciate opportunity to participate in this patients care.
[2016-06-24] MEDS: OXYCODONE HCL IR 5 MG TABLET PO PRN ×2 (14:44→21:39)
--- NOTE | 2016-06-24 18:23 | PDOC PROGRESS REPORT ---
Subjective Progress Note for:: 06/24/16 Subjective:: Reason for visit: Follow-up weakness Hospital course:ANGELIC HOUGH is a 75 year old female presents from home by EMS after several falls over the last couple of days. She states she's getting progressively weaker. She normally lives at home and is wheelchair bound but able to transition from [id number] and then ambulate her wheelchair around the house. She states in doing so 2 days ago she missed the chair and fell onto her knees and had to call for help to get back up. She refuses come to Hospital at that time. She is just finishing a course of antibiotics for urinary tract infection diagnosed in mid May and states ever since starting the antibiotics her appetite has been very poor. Over the last 24 hours she's had very little oral intake. She denies abdominal pain, nausea, vomiting or diarrhea. She denies chest pain, shortness of breath, syncope or presyncope, numbness tingling, unilateral weakness, difficulty swallowing, headache or vision changes. Evaluation in the emergency department is largely unrevealing but the patient is too weak to be able to transition back home to independent living so we were asked to admit for further evaluation of her weakness. Patient was admitted and gently hydrated through the course of her first night with minimal change in her general condition. Evaluation remains unrevealing aside from a very low B12 level which could be contributing to some of her presentation. Today her performed a more thorough exam of the patient's skin which reveals a stage II sacral decubitus ulcer that she states is been there for "quite a while "; exam of the left knee shows a fistulous tract at the proximal portion of the scar that she states has been there for several years and she cleans with peroxide and packed with iodoform on a daily basis; her inner thighs just distal to her genitalia show maceration of the skin bilaterally in an area approximately 2-1/2 cm each. She has improved to what appears to be a new baseline for her, remains very weak and grave risk for falls. She and her family have met with social workers , counselors, palliative care and there are no placement options available to her at this time due to financial stressors as the family and her assets would be responsible for the financial burden of placement. Arrangements being made for return to home once the family can organize themselves and others to assist , hopefully in the morning. Subjective: She denies chest pain, palpitations, headache, dizziness, fever, chills, nausea vomiting or diarrhea. ROS: per HPI plus a total of 10 systems reviewed, pertinent positives and negatives noted above, remaining systems negative. Physical Exam Vital Signs: Temp Pulse Resp BP Pulse Ox 97.4 F 87 12 123/63 96 06/24/16 10:49 06/24/16 10:49 06/24/16 10:49 06/24/16 10:49 06/24/16 10:49 Intake & Output 06/23/16 06/24/16 06/25/16 06:59 06:59 06:59 Intake Total 1313 253 0 Output Total 1025 1100 Balance 288 -847 0 Weight 85.6 kg 84.9 kg EXAM GENERAL: NAD; well developed; some muscle wasting noted of the extremities; alert and oriented to person, place, time, situation, speaks in a very soft voice HEENT: normocephalic, atraumatic; EOMI, no conjunctival injection, no scleral icterus; RESPIRATORY: no accessory muscle use, no increased WOB, good air entry bilaterally; no wheezes, rales, rhonchi; mild bibasilar inspiratory crackles persist CARDIO: no JVD; RRR; no systolic murmur; no tachycardia VASCULAR: no pallor; 2+ radial, DP pulse; GI: soft; nondistended; normal bowel sounds; no rebound, rigidity, guarding; nontender NEURO: normal sensation; decreased motor function bilaterally legs strength 2 out of 5; nonambulatory; no dysarthria; tongue protrudes midline; MSK: Bilateral knees right greater than left are edematous with small effusions in the joint space; areas of ecchymosis improving EXTREMITIES: no palpable cords in calf; no clubbing, cyanosis; 1+ pedal edema PSYCH: normal affect, normal mood SKIN: Cool; moist; no jaundice; left lateral knee has a 5 mm open tract with packing in place, no surrounding erythema, no foul odor or purulent exudate, this appears to be mature; inner portion of both thighs just distal to her genitalia show 2 areas of maceration approximately 2-1/2 cm, very tender to the touch, no surrounding erythema and no purulent fluid; stage II sacral decubitus ulcer evident Assessment & Plan - Diagnosis (1) Generalized weakness Is this a current diagnosis for this admission?: YesPlan: Admitted for gentle IV fluids, physical and occupational therapy. She remains unable to care for herself to allow discharge home at this time and in my opinion would benefit from rehabilitation placement. But Unfortunately she has no admitting diagnosis and so the burden will fall to the family to find appropriate placement for her and there are no viable options available to her at this time. Appreciate palliative care assistance to help clarify goals of care. Per family conference today, the family will work on making arrangements for family and friends to stay with her at home and arrange her living quarters to facilitate doing so anticipating discharge in the morning. (2) Coronary artery disease Qualifiers: Coronary Disease-Associated Artery/Lesion type: [place] artery [place] vs. transplanted heart: [place] heart Associated angina: angina presence unspecified Qualified Code(s): I25.10 - Atherosclerotic heart disease of [place] coronary artery without angina pectoris Is this a current diagnosis for this admission?: Yes (3) Decreased oral intake Is this a current diagnosis for this admission?: Yes (4) Contusion of knee and lower leg Is this a current diagnosis for this admission?: Yes (5) B12 deficiency Is this a current diagnosis for this admission?: Yes (6) Sacral decubitus ulcer, stage II Is this a current diagnosis for this admission?: Yes (7) Fistula into joint Is this a current diagnosis for this admission?: Yes - Time Time Spent with patient: 15-24 minutes Anticipated discharge: Home Within: within 24 hours
[2016-06-25] MEDS: OXYCODONE HCL IR 5 MG TABLET PO PRN (04:27)
[2016-06-25] MEDS: LANSOPRAZOLE 30 MG TAB.RAP.DR PO SCH ×2 (05:23→17:17)
[2016-06-25] MEDS: CYANOCOBALAMIN (VITAMIN B-12) INJ 1000 MCG/1 ML VIAL IM SCH (09:23)
[2016-06-25] MEDS: RIVAROXABAN 10 MG TABLET PO SCH ×2 (09:23→17:17)
[2016-06-25] MEDS: DOCUSATE SODIUM 100 MG CAPSULE PO SCH (09:23)
[2016-06-25] MEDS: ESCITALOPRAM OXALATE 10 MG TABLET PO SCH (09:25)
[2016-06-25] MEDS: ATORVASTATIN CALCIUM 10 MG TABLET PO SCH (09:25)
[2016-06-25] MEDS: HYDROCODONE/ACETAMINOPHEN 5-325 MG TABLET PO PRN (09:26)
[2016-06-25] MEDS: GABAPENTIN 300 MG CAPSULE PO SCH ×2 (09:26→17:17)
[2016-06-25] MEDS: TOLTERODINE TARTRATE 1 MG TABLET PO SCH (09:26)
[2016-06-25] MEDS: CETIRIZINE 10 MG TABLET PO PRN (09:52)
[2016-06-25 19:29] VITALS: BP 126/60
[2016-06-26] MEDS ORDERED: FENTANYL 50 MCG/HR PATCH.TD72 TD SCH (10:00)
--- NOTE | 2016-06-26 17:34 | PDOC DISCHARGE SUMMARY ---
General - Admit/Disc Date/PCP Admission Date/Primary Care Provider: 06/20/16 18:34 PAM WEBB, Discharge Date: 06/25/16 - Discharge Diagnosis (1) Generalized weakness Is this a current diagnosis for this admission?: YesSummary: Admitted for gentle IV fluids, physical and occupational therapy. She remains unable to care for herself to allow discharge home at this time and in my opinion would benefit from rehabilitation placement. But Unfortunately she has no admitting diagnosis and so the burden will fall to the family to find appropriate placement for her and there are no viable options available to her at this time. Appreciate palliative care assistance to help clarify goals of care. Per family conference today, the family will work on making arrangements for family and friends to stay with her at home and arrange her living quarters to facilitate doing so anticipating discharge in the morning. (2) B12 deficiency Is this a current diagnosis for this admission?: Yes (3) Contusion of knee and lower leg Is this a current diagnosis for this admission?: Yes (4) Coronary artery disease Is this a current diagnosis for this admission?: Yes (5) Decreased oral intake Is this a current diagnosis for this admission?: Yes (6) Sacral decubitus ulcer, stage II Is this a current diagnosis for this admission?: Yes - Additional Information Resuscitation Status: Full Code Discharge Diet: Regular Discharge Activity: Bedrest, Supervised Activity Home Medications: Atorvastatin Calcium [Lipitor 10 mg Tablet] 10 mg PO DAILY 06/20/16 Cetirizine HCl [Zyrtec 10 mg Tablet] 1 tab PO DAILYP PRN 06/20/16 Dexlansoprazole [Dexilant 60 mg Capsule] 60 mg PO DAILY 06/20/16 Escitalopram Oxalate [Lexapro 10 mg Tablet] 10 mg PO DAILY 06/20/16 Fentanyl [Duragesic 50 Mcg/Hr Transdermal Patch] 1 each TD Q3D 06/20/16 Gabapentin [Neurontin 300 mg Capsule] 300 mg PO BID 06/20/16 Gabapentin [Neurontin 300 mg Capsule] 600 mg PO QHS 06/20/16 Ibandronate Sodium [Boniva] 150 mg PO ASDIR 06/20/16 Mirtazapine 7.5 mg PO QHS 06/20/16 Risperidone 4 mg PO QHS 06/20/16 Rivaroxaban [Xarelto 10 mg Tablet] 10 mg PO Q12 06/20/16 Tolterodine Tartrate [Detrol] 2 mg PO BID 06/20/16 Trazodone HCl [Desyrel 50 mg Tablet] 50 mg PO HSP PRN 06/20/16 Umeclidinium Brm/Vilanterol Tr [Anoro Ellipta 62.5-25 Mcg INH] 1 puff IH DAILY 06/20/16 Fluticasone Propionate [Flonase Nasal [place] 50 Mcg/[place] 16 gm] 1 spray NASL BID 06/21/16 Cyanocobalamin (Vitamin B-12) [Vitamin B-12] 2,000 mcg PO DAILY #30 tablet 06/25 History of Present Illness History of Present Illness: ANGELIC HOUGH is a 75 year old female Hospital Course Hospital Course: Hospital course:ANGELIC HOUGH is a 75 year old female presents from home by EMS after several falls over the last couple of days. She states she's getting progressively weaker. She normally lives at home and is wheelchair bound but able to transition from [id number] and then ambulate her wheelchair around the house. She states in doing so 2 days ago she missed the chair and fell onto her knees and had to call for help to get back up. She refuses come to Hospital at that time. She is just finishing a course of antibiotics for urinary tract infection diagnosed in mid May and states ever since starting the antibiotics her appetite has been very poor. Over the last 24 hours she's had very little oral intake. She denies abdominal pain, nausea, vomiting or diarrhea. She denies chest pain, shortness of breath, syncope or presyncope, numbness tingling, unilateral weakness, difficulty swallowing, headache or vision changes. Evaluation in the emergency department is largely unrevealing but the patient is too weak to be able to transition back home to independent living so we were asked to admit for further evaluation of her weakness. Patient was admitted and gently hydrated through the course of her first night with minimal change in her general condition. Evaluation remains unrevealing aside from a very low B12 level which could be contributing to some of her presentation. Today her performed a more thorough exam of the patient's skin which reveals a stage II sacral decubitus ulcer that she states is been there for "quite a while "; exam of the left knee shows a fistulous tract at the proximal portion of the scar that she states has been there for several years and she cleans with peroxide and packed with iodoform on a daily basis; her inner thighs just distal to her genitalia show maceration of the skin bilaterally in an area approximately 2-1/2 cm each. She has improved to what appears to be a new baseline for her, remains very weak and grave risk for falls. She and her family have met with social workers , counselors, palliative care and there are no placement options available to her at this time due to financial stressors as the family and her assets would be responsible for the financial burden of placement. Arrangements being made for return to home once the family can organize themselves and others to assist , hopefully in the morning. Physical Exam Vital Signs: Temp Pulse Resp BP Pulse Ox 97.9 F 78 16 126/60 H 99 06/25/16 19:24 06/25/16 19:24 06/25/16 15:49 06/25/16 19:24 06/25/16 19:24 Intake & Output 06/25/16 06/26/16 06/27/16 00:59 00:59 00:59 Intake Total 1080 666 Output Total 1500 1000 Balance -420 -334 Weight 84.9 kg 83.9 kg Additional comments: GENERAL: NAD; well developed; some muscle wasting noted of the extremities; alert and oriented to person, place, time, situation, speaks in a very soft voice HEENT: normocephalic, atraumatic; EOMI, no conjunctival injection, no scleral icterus; RESPIRATORY: no accessory muscle use, no increased WOB, good air entry bilaterally; no wheezes, rales, rhonchi; mild bibasilar inspiratory crackles persist CARDIO: no JVD; RRR; no systolic murmur; no tachycardia VASCULAR: no pallor; 2+ radial, DP pulse; GI: soft; nondistended; normal bowel sounds; no rebound, rigidity, guarding; nontender NEURO: normal sensation; decreased motor function bilaterally legs strength 2 out of 5; nonambulatory; no dysarthria; tongue protrudes midline; MSK: Bilateral knees right greater than left are edematous with small effusions in the joint space; areas of ecchymosis improving EXTREMITIES: no palpable cords in calf; no clubbing, cyanosis; 1+ pedal edema PSYCH: normal affect, normal mood SKIN: Cool; moist; no jaundice; left lateral knee has a 5 mm open tract with packing in place, no surrounding erythema, no foul odor or purulent exudate, this appears to be mature; inner portion of both thighs just distal to her genitalia show 2 areas of maceration approximately 2-1/2 cm, very tender to the touch, no surrounding erythema and no purulent fluid; stage II sacral decubitus ulcer evident Results Laboratory Results: Labs- Entire Visit 06/20/16 06/20/16 06/20/16 15:42 15:42 15:42 WBC 4.7 RBC 4.40 Hgb 11.9 L Hct 36.8 MCV 84 MCH 27.0 MCHC 32.3 RDW 16.8 H Plt Count 311 Seg Neutrophils % 65.7 Lymphocytes % 14.6 Monocytes % 17.8 H Eosinophils % 1.1 Basophils % 0.8 Absolute Neutrophils 3.1 Absolute Lymphocytes 0.7 Absolute Monocytes 0.8 Absolute Eosinophils 0.1 Absolute Basophils 0.0 PT 16.0 H INR 1.24 Sodium 139.3 Potassium 3.6 Chloride 102 Carbon Dioxide 31 H Anion Gap 6 BUN 16 Creatinine 0.61 Est GFR ( Amer) > 60 Est GFR (Non-Af Amer) > 60 Glucose 89 Hemoglobin A1c % Calcium 9.1 Phosphorus Magnesium Total Bilirubin 0.7 Direct Bilirubin 0.0 AST 12 L ALT 21 Alkaline Phosphatase 94 Creatine Kinase CK-MB (CK-2) Troponin I Total Protein 5.3 L Albumin 2.9 L Vitamin B12 TSH Urine Color Urine Appearance Urine pH Ur Specific [place] Urine Protein Urine Glucose (UA) Urine Ketones Urine Blood Urine Nitrite Urine Bilirubin Urine Urobilinogen Ur Leukocyte Esterase Urine WBC (Auto) Urine RBC (Auto) Urine Mucus (Auto) Urine Ascorbic Acid 06/20/16 06/20/16 06/20/16 15:42 15:42 16:25 WBC RBC Hgb Hct MCV MCH MCHC RDW Plt Count Seg Neutrophils % Lymphocytes % Monocytes % Eosinophils % Basophils % Absolute Neutrophils Absolute Lymphocytes Absolute Monocytes Absolute Eosinophils Absolute Basophils PT INR Sodium Potassium Chloride Carbon Dioxide Anion Gap BUN Creatinine Est GFR ( Amer) Est GFR (Non-Af Amer) Glucose Hemoglobin A1c % Calcium Phosphorus 3.2 Magnesium 1.9 Total Bilirubin Direct Bilirubin AST ALT Alkaline Phosphatase Creatine Kinase 30 CK-MB (CK-2) 0.55 Troponin I < 0.012 Total Protein Albumin Vitamin B12 160.0 L TSH Urine Color RADHA Urine Appearance SLIGHTLY-CLOUDY Urine pH 6.0 Ur Specific [place] 1.024 Urine Protein 30 H Urine Glucose (UA) NEGATIVE Urine Ketones 20 H Urine Blood NEGATIVE Urine Nitrite NEGATIVE Urine Bilirubin NEGATIVE Urine Urobilinogen 2.0 H Ur Leukocyte Esterase NEGATIVE Urine WBC (Auto) 1 Urine RBC (Auto) 16 Urine Mucus (Auto) OCC Urine Ascorbic Acid NEGATIVE 06/21/16 06/21/16 05:50 05:50 WBC RBC Hgb Hct MCV MCH MCHC RDW Plt Count Seg Neutrophils % Lymphocytes % Monocytes % Eosinophils % Basophils % Absolute Neutrophils Absolute Lymphocytes Absolute Monocytes Absolute Eosinophils Absolute Basophils PT INR Sodium Potassium Chloride Carbon Dioxide Anion Gap BUN Creatinine Est GFR ( Amer) Est GFR (Non-Af Amer) Glucose Hemoglobin A1c % 5.0 Calcium Phosphorus Magnesium Total Bilirubin Direct Bilirubin AST ALT Alkaline Phosphatase Creatine Kinase CK-MB (CK-2) Troponin I Total Protein Albumin Vitamin B12 TSH 3.66 Urine Color Urine Appearance Urine pH Ur Specific [place] Urine Protein Urine Glucose (UA) Urine Ketones Urine Blood Urine Nitrite Urine Bilirubin Urine Urobilinogen Ur Leukocyte Esterase Urine WBC (Auto) Urine RBC (Auto) Urine Mucus (Auto) Urine Ascorbic Acid EKG Comments: SINUS RHYTHM [AMI1] . BORDERLINE R WAVE PROGRESSION, ANTERIOR LEADS [T1LA] . NONSPECIFIC T ABNORMALITIES, LATERAL LEADS Impressions: Hip X-Ray 06/20/16 00:00 IMPRESSION: No fracture or dislocation identified in the pelvis or hips. Knee X-Ray 06/20/16 00:00 IMPRESSION: No acute fracture. Small effusion. Chest X-Ray 06/20/16 14:27 IMPRESSION: Cardiomegaly. No acute findings Plan Discharge Plan: Patient was discharged home with services Time Spent: Greater than 30 Minutes
== END 2016-06-25 19:30 | disposition home or self-care (01) ==
LOC: ER 13:33 → EH 18:34 → UNDOADMOB 18:44 → 4W 06-21 00:05
PROC: 0T9B70Z Drainage of Bladder with Drainage Device, Via Natural or Artificial Opening (ICD-10-PCS; principal; 2016-06-20)
DX: R53.1 Weakness (principal); E53.8 Deficiency of other specified B group vitamins; S80.10XA Contusion of unspecified lower leg, initial encounter; I25.10 Atherosclerotic heart disease of native coronary artery without angina pectoris; L89.152 Pressure ulcer of sacral region, stage 2; I50.9 Heart failure, unspecified; E78.5 Hyperlipidemia, unspecified; J44.9 Chronic obstructive pulmonary disease, unspecified; K21.9 Gastro-esophageal reflux disease without esophagitis; Z51.5 Encounter for palliative care; Z66 Do not resuscitate; M25.162 Fistula, left knee; Z91.81 History of falling; R63.0 Anorexia
CPT/HCPCS: 99285; 51702; 36415 ×2; 82553; 82607; 82550; 83735; 84100; 84443; 85025; 85610; 80053; 81001; 84484; 83036; 71010; 73560 ×2; 73522; 93005; 93010; 97163; 97167; A9270 ×45; J3420 ×5; J3475 ×2; J3480 ×2; J3490 ×8; J3411 ×2; J7030 ×2; J1100; G8978; G8979; G8987; G8988

== ENCOUNTER 2016-06-27 08:56 | Inpatient (IN) | payer MEDICARE ==
[2016-06-27] MEDS: NORMAL SALINE 1000 ML 1,000 ML IV PRN ×4 (09:09→14:10)
[2016-06-27] MEDS ORDERED: CEFTRIAXONE 1 GM/D5W RTU 50 ML IV ONE (09:15)
--- NOTE | 2016-06-27 09:18 | ER Document Report ---
ED General - General Stated Complaint: NON RESPONSIVE Mode of Arrival: Medic Information source: Emergency Med Personnel, [facility] Records Cannot obtain history due to: Altered mental status Notes: 75-year-old female recent admission for weakness UTI presents with complaints of family with concerns for decreased responsiveness. Symptoms worsened since last night. Denies any fevers or chills. Patient has an indwelling T[place] catheter TRAVEL OUTSIDE OF THE [place] IN LAST 30 DAYS: No - HPI Onset: Yesterday Onset/Duration: Persistent Quality of pain: No pain Severity: Moderate Pain Level: Denies Associated symptoms: Weakness Exacerbated by: Denies Relieved by: Denies Similar symptoms previously: Yes Recently seen / treated by doctor: Yes - Related Data Allergies/Adverse Reactions: ampicillin [Ampicillin] Allergy (Verified 06/22/16 01:17) codeine [Codeine] Allergy (Verified 06/22/16 01:17) flurazepam HCl [From [place]] Allergy (Verified 06/22/16 01:17) Home Medications: Current Home Medications Bupropion HCl [Wellbutrin Sr 150 mg Tablet] 450 mg PO QAM 06/27/16 [History] Docusate Sodium [Dok] 100 mg PO BID 06/27/16 [History] Past Medical History - Social History Smoking Status: Never Smoker Cigarette use (# per day): No Chew tobacco use (# tins/day): No Smoking Education Provided: No Family History: Reviewed & Not Pertinent - Past Medical History Cardiac Medical History: Reports: Hx Congestive Heart Failure, Hx Hypercholesterolemia Pulmonary Medical History: Reports: Hx Bronchitis, Hx COPD GI Medical History: Reports: Hx Gastroesophageal Reflux Disease, Hx Hiatal Hernia Musculoskeltal Medical History: Reports Hx Arthritis, Reports Hx Muscle Weakness , Reports Hx Musculoskeletal Deformity - foot drop Psychiatric Medical History: Reports: Hx Depression Past Surgical History: Reports: Hx Appendectomy, Hx Cardiac Surgery - Bypass x5 , Hx Cholecystectomy, Hx Hysterectomy, Hx Orthopedic Surgery - Knee surgery - Immunizations Hx Diphtheria, Pertussis, Tetanus Vaccination: No Review of Systems - Review of Systems Notes: REVIEW OF SYSTEMS: CONSTITUTIONAL : Denies fever, chills, or sweats. Denies recent illness. EENT: Denies eye, ear, throat, or mouth pain or symptoms. Denies nasal or sinus congestion or discharge. Denies throat, tongue, or mouth swelling or difficulty swallowing. CARDIOVASCULAR: Denies chest pain. Denies palpitations or racing or irregular heart beat. Denies ankle edema. RESPIRATORY: Denies cough, cold, or chest congestion. Denies shortness of breath, difficulty breathing, or wheezing. GASTROINTESTINAL: Denies abdominal pain or distention. Denies nausea, vomiting , or diarrhea. Denies blood in vomitus, stools, or per rectum. Denies black, tarry stools. Denies constipation. GENITOURINARY: Denies difficulty urinating, painful urination, burning, frequency, blood in urine, or discharge. FEMALE GENITOURINARY: Denies vaginal bleeding, heavy or abnormal periods, irregular periods. Denies vaginal discharge or odor. MUSCULOSKELETAL: Denies back or neck pain or stiffness. Denies joint pain or swelling. SKIN: Denies rash, lesions or sores. HEMATOLOGIC : Denies easy bruising or bleeding. LYMPHATIC: Denies swollen, enlarged glands. NEUROLOGICAL: Family admits to recent weakness decreased responsiveness PSYCHIATRIC: Denies anxiety or stress. Denies depression, suicidal ideation, or homicidal ideation. ALL OTHER SYSTEMS REVIEWED AND NEGATIVE. Dictation was performed using [employer] voice recognition software PHYSICAL EXAMINATION: GENERAL: Ill-appearing female no acute distress HEAD: Atraumatic, normocephalic. EYES: Pupils equal round and reactive to light, extraocular movements intact, conjunctiva are normal. ENT: Nares patent, oropharynx clear without exudates. Moist mucous membranes. NECK: Normal range of motion, supple without lymphadenopathy LUNGS: Tachypneic HEART: A. fib RVR ABDOMEN: Soft, nontender, nondistended abdomen. No guarding, no rebound. No masses appreciated. Female : deferred Musculoskeletal: Normal range of motion, no pitting or edema. No cyanosis. NEUROLOGICAL: Responds to voice stimuli SKIN: Left knee fistula Physical Exam - Vital signs Vitals: Resp Pulse Ox 18 96 06/27/16 09:00 06/27/16 09:00 Course - Re-evaluation Re-evalutation: 06/27/16 09:21 Patient appears septic, lab work imaging are pending at this time 06/27/16 11:11 pt with continued hypotension, dnr noted speaking with Dr Navarrete 06/27/16 11:13 06/27/16 11:30 Patient meets septic psych criteria however family does not want pressors at this time. Given that she is a DO NOT RESUSCITATE I will abide by their request Reevaluation has been performed on the patient. Patient vital signs are noted to be 72/48, heart rate 92, respiratory rate 18, temp 97.8 Cardiopulmonary exam noted lungs CTA Capillary refill is slow Peripheral pulses are intact all throughout and bounding Skin Examination notes tenting 06/27/16 15:50 - Vital Signs Vital signs: Temp Pulse Resp BP Pulse Ox 92 10 L 79/49 L 95 06/27/16 14:20 06/27/16 14:20 06/27/16 14:20 06/27/16 14:20 - Laboratory Result Diagrams: 06/27/16 09:15 06/27/16 10:55 Laboratory results interpreted by me: 06/27/16 06/27/16 06/27/16 09:15 09:15 09:15 RDW 16.8 H Seg Neuts % (Manual) 95 H Lymphocytes % (Manual) 3 L Monocytes % (Manual) 2 L Abs Neuts (Manual) 9.9 H Abs Lymphs (Manual) 0.3 L PT 16.4 H VBG pH 7.49 H VBG pCO2 34.0 L Potassium Chloride BUN Glucose Calcium Total Protein Albumin Urine Protein Urine Ketones Urine Blood Urine Nitrite Ur Leukocyte Esterase 06/27/16 06/27/16 09:15 10:55 RDW Seg Neuts % (Manual) Lymphocytes % (Manual) Monocytes % (Manual) Abs Neuts (Manual) Abs Lymphs (Manual) PT VBG pH VBG pCO2 Potassium 3.5 L Chloride 110 H BUN 28 H Glucose 128 H Calcium 7.9 L Total Protein 3.9 L Albumin 1.9 L Urine Protein 30 H Urine Ketones TRACE H Urine Blood LARGE H Urine Nitrite POSITIVE H Ur Leukocyte Esterase MODERATE H - Diagnostic Test Radiology reviewed: Image reviewed, Reports reviewed - EKG Interpretation by Me EKG shows normal: Sinus rhythm, [place], Intervals, QRS Complexes Discharge - Discharge Clinical Impression: Septic shock UTI (urinary tract infection) Qualifiers: Urinary tract infection type: acute cystitis Hematuria presence: with hematuria Qualified Code(s): N30.01 - Acute cystitis with hematuria Altered mental state Qualifiers: Altered mental status type: transient alteration of awareness Qualified Code(s) : R40.4 - Transient alteration of awareness Condition: Serious Disposition: ADMITTED INPATIENT Admitting Provider: Hospitalist Unit Admitted: Medical Floor
[2016-06-27 09:53] LABS: HEMATOCRIT 38.7 % (36.0-47.0); HEMOGLOBIN 12.7 g/dL (12.0-15.5); HGB HCT DIFFERENCE -0.6; MEAN CORPUSCULAR HGB CONC 32.8 g/dL (32.0-36.0); MEAN CORPUSCULAR VOLUME 82 fl (80-97); RED BLOOD COUNT 4.72 10^6/uL (3.72-5.28); RED CELL DISTRIBUTION WIDTH 16.8 % (11.5-14.0); WHITE BLOOD COUNT 10.4 10^3/uL (4.0-10.5)
[2016-06-27 09:57] LABS: PROTHROMBIN TIME 16.4 SEC (11.4-15.4)
[2016-06-27 10:10] LABS: VENOUS BLOOD BASE EXCESS 2.6 mmol/L; VENOUS BLOOD HCO3 25.4 mmol/L (20-32); VENOUS BLOOD PH 7.49 (7.30-7.42)
[2016-06-27 10:14] LABS: APPEARANCE,URINE CLOUDY; BILIRUBIN,URINE NEGATIVE (NEGATIVE); CALCIUM OXALATE CRYSTALS,URINE FEW /HPF; GLUCOSE, URINE NEGATIVE (NEGATIVE); KETONES,URINE TRACE mg/dL (NEGATIVE); LEUKOCYTE ESTERASE,URINE MODERATE (NEGATIVE); NITRITE,URINE POSITIVE (NEGATIVE); PROTEIN,URINE 30 mg/dL (NEGATIVE); URINE SPECIFIC GRAVITY 1.017; UROBILINOGEN,URINE NEGATIVE mg/dL (<2.0)
[2016-06-27 10:23] LABS: BASOPHILS % (MANUAL) 0 % (0-2); EOSINOPHILS % (MANUAL) 0 % (0-6); LYMPHOCYTES % (MANUAL) 3 % (13-45); TOTAL CELLS COUNTED 100
[2016-06-27 10:25] LABS: ANISOCYTOSIS 1+; TOXIC GRANULATION 1+
[2016-06-27] MEDS ORDERED: NORMAL SALINE 1000 ML 1,000 ML IV PRN (11:29)
[2016-06-27 11:43] LABS: ALANINE AMINOTRANSFERASE 31 U/L (9-52); ALBUMIN 1.9 g/dL (3.5-5.0); ALKALINE PHOSPHATASE 73 U/L (38-126); ANION GAP 8 (5-19); ASPARTATE AMINO TRANSFERASE 21 U/L (14-36); BILIRUBIN,TOTAL 0.5 mg/dL (0.2-1.3); BLOOD UREA NITROGEN 28 mg/dL (7-20); CALCIUM 7.9 mg/dL (8.4-10.2); CARBON DIOXIDE 22 mmol/L (22-30); CHLORIDE 110 mmol/L (98-107); CREATININE RESULT 0.91 mg/dL (0.52-1.25); GLUCOSE 128 mg/dL (75-110); POTASSIUM 3.5 mmol/L (3.6-5.0); SODIUM 139.8 mmol/L (137-145); TOTAL PROTEIN 3.9 g/dL (6.3-8.2)
[2016-06-27] MEDS ORDERED: VANCOMYCIN HCL 0 MG in DEXTROSE 5%-WATER 250 ML IV NR (12:00)
[2016-06-27] MEDS ORDERED: AZTREONAM 1 GM in DEXTROSE 5%-WATER 50 ML IV SCH (12:00)
[2016-06-27] MEDS ORDERED: AZTREONAM 1 GM in DEXTROSE 5%-WATER 50 ML IV ONE (12:30)
[2016-06-27] MEDS: OXYCODONE-ACETAMINOPHEN 5-325 MG TABLET PO PRN (16:50)
--- NOTE | 2016-06-27 17:44 | PDOC H&P ---
History of Present Illness Admission Date/PCP: 06/27/16 11:52 PAM WEBB, Patient complains of: altered mental status fevre hypotension History of Present Illness: ANGELIC HOUGH is a 75 year old female chronically debilitated, bedbound , recently discharged from [facility] was brought with altered mentation In the ED she was diagnosed of UTI - sepsis subsequently admitted to medical unit under Hospitalist service Patient is DNR - no pressors She was managed with IV fluids , azactam and Vancomycin Past Medical History Cardiac Medical History: Reports: Congestive Heart Failure, Hyperlipidema Pulmonary Medical History: Reports: Bronchitis, Chronic Obstructive Pulmonary Disease (COPD) GI Medical History: Reports: Gastroesophageal Reflux Disease, Hiatal Hernia Musculoskeltal Medical History: Reports: Arthritis Psychiatric Medical History: Reports: Depression Hematology: Reports: Anemia Past Surgical History Past Surgical History: Reports: Appendectomy, Cholecystectomy, Hysterectomy, Orthopedic Surgery - Knee surgery Social History Smoking Status: Never Smoker Frequency of Alcohol Use: None Hx Recreational Drug Use: No Drugs: None Hx Prescription Drug Abuse: No - Advance Directive Resuscitation Status: Do Not Resuscitate Surrogate healthcare decision maker:: daughter Family History Family History: Reviewed & Not Pertinent Parental Family History Reviewed: Yes Children Family History Reviewed: Yes Sibling(s) Family History Reviewed.: Yes Medication/Allergy Home Medications: Atorvastatin Calcium [Lipitor 10 mg Tablet] 10 mg PO QHS 06/20/16 Cetirizine HCl [Zyrtec 10 mg Tablet] 1 tab PO DAILYP PRN 06/20/16 Dexlansoprazole [Dexilant 60 mg Capsule] 60 mg PO DAILY 06/20/16 Escitalopram Oxalate [Lexapro 10 mg Tablet] 10 mg PO DAILY 06/20/16 Fentanyl [Duragesic 50 Mcg/Hr Transdermal Patch] 1 each TD Q3D 06/20/16 Gabapentin [Neurontin 300 mg Capsule] 300 mg PO BID 06/20/16 Gabapentin [Neurontin 300 mg Capsule] 600 mg PO QHS 06/20/16 Ibandronate Sodium [Boniva] 150 mg PO ASDIR 06/20/16 Mirtazapine 7.5 mg PO QHS 06/20/16 Risperidone 4 mg PO QHS 06/20/16 Rivaroxaban [Xarelto 10 mg Tablet] 10 mg PO Q12 06/20/16 Tolterodine Tartrate [Detrol] 2 mg PO BID 06/20/16 Trazodone HCl [Desyrel 50 mg Tablet] 50 mg PO HSP PRN 06/20/16 Umeclidinium Brm/Vilanterol Tr [Anoro Ellipta 62.5-25 Mcg INH] 1 puff IH DAILY 06/20/16 Fluticasone Propionate [Flonase Nasal [place] 50 Mcg/[place] 16 gm] 1 spray NASL BID 06/21/16 Cyanocobalamin (Vitamin B-12) [Vitamin B-12] 2,000 mcg PO DAILY #30 tablet 06/25 Bupropion HCl [Wellbutrin Sr 150 mg Tablet] 450 mg PO QAM 06/27/16 Docusate Sodium [Dok] 100 mg PO BID 06/27/16 Allergies/Adverse Reactions: ampicillin [Ampicillin] Allergy (Verified 06/22/16 01:17) codeine [Codeine] Allergy (Verified 06/22/16 01:17) flurazepam HCl [From [place]] Allergy (Verified 06/22/16 01:17) Review of Systems ROS unobtainable: Due to mental status Physical Exam Vital Signs: Temp Pulse Resp BP Pulse Ox 97.3 F 75 20 85/45 L 99 06/27/16 14:48 06/27/16 14:48 06/27/16 14:48 06/27/16 14:48 06/27/16 14:48 Intake & Output 06/26/16 06/27/16 06/28/16 00:59 00:59 00:59 Weight 82.3 kg General appearance: PRESENT: morbidly obese, other - altered - looks very ill Head exam: PRESENT: atraumatic, normocephalic Eye exam: PRESENT: conjunctiva pale Ear exam: PRESENT: normal external ear exam Neck exam: ABSENT: carotid bruit, JVD, lymphadenopathy, thyromegaly Respiratory exam: PRESENT: clear to auscultation martha. ABSENT: rales, rhonchi, wheezes Cardiovascular exam: PRESENT: RRR, tachycardia. ABSENT: diastolic murmur, rubs , systolic murmur GI/Abdominal exam: PRESENT: normal bowel sounds, soft. ABSENT: distended, guarding, mass, organolmegaly, rebound, tenderness Neurological exam: PRESENT: altered Skin exam: PRESENT: dry, intact, warm. ABSENT: cyanosis, rash Results Laboratory Results: Labs- All tests 24 hr 06/27/16 06/27/16 06/27/16 09:15 09:15 09:15 WBC 10.4 RBC 4.72 Hgb 12.7 Hct 38.7 MCV 82 MCH 27.0 MCHC 32.8 RDW 16.8 H Plt Count 359 Total Counted 100 Seg Neutrophils % Not Reportable Seg Neuts % (Manual) 95 H Lymphocytes % Not Reportable Lymphocytes % (Manual) 3 L Monocytes % Not Reportable Monocytes % (Manual) 2 L Eosinophils % Not Reportable Eosinophils % (Manual) 0 Basophils % Not Reportable Basophils % (Manual) 0 Absolute Neutrophils Not Reportable Abs Neuts (Manual) 9.9 H Absolute Lymphocytes Not Reportable Abs Lymphs (Manual) 0.3 L Absolute Monocytes Not Reportable Abs Monocytes (Manual) 0.2 Absolute Eosinophils Not Reportable Absolute Eos (Manual) 0.0 Absolute Basophils Not Reportable Abs Basophils (Manual) 0.0 Toxic Granulation 1+ Platelet Comment ADEQUATE Anisocytosis 1+ PT 16.4 H INR 1.28 VBG pH VBG pCO2 VBG HCO3 VBG Base Excess Sodium Cancelled Potassium Cancelled Chloride Cancelled Carbon Dioxide Cancelled Anion Gap Cancelled BUN Cancelled Creatinine Cancelled Est GFR ( Amer) Cancelled Est GFR (Non-Af Amer) Cancelled Glucose Cancelled Lactic Acid Calcium Cancelled Total Bilirubin Cancelled Direct Bilirubin Cancelled AST Cancelled ALT Cancelled Alkaline Phosphatase Cancelled Total Protein Cancelled Albumin Cancelled Urine Color Urine Appearance Urine pH Ur Specific [place] Urine Protein Urine Glucose (UA) Urine Ketones Urine Blood Urine Nitrite Urine Bilirubin Urine Urobilinogen Ur Leukocyte Esterase Urine WBC (Auto) Urine RBC (Auto) Urine Bacteria (Auto) Squamous Epi Cells Auto Calcium Oxalate Cr Auto Urine Mucus (Auto) Urine Ascorbic Acid 06/27/16 06/27/16 06/27/16 09:15 09:15 09:15 WBC RBC Hgb Hct MCV MCH MCHC RDW Plt Count Total Counted Seg Neutrophils % Seg Neuts % (Manual) Lymphocytes % Lymphocytes % (Manual) Monocytes % Monocytes % (Manual) Eosinophils % Eosinophils % (Manual) Basophils % Basophils % (Manual) Absolute Neutrophils Abs Neuts (Manual) Absolute Lymphocytes Abs Lymphs (Manual) Absolute Monocytes Abs Monocytes (Manual) Absolute Eosinophils Absolute Eos (Manual) Absolute Basophils Abs Basophils (Manual) Toxic Granulation Platelet Comment Anisocytosis PT INR VBG pH 7.49 H VBG pCO2 34.0 L VBG HCO3 25.4 VBG Base Excess 2.6 Sodium Potassium Chloride Carbon Dioxide Anion Gap BUN Creatinine Est GFR ( Amer) Est GFR (Non-Af Amer) Glucose Lactic Acid 1.7 Calcium Total Bilirubin Direct Bilirubin AST ALT Alkaline Phosphatase Total Protein Albumin Urine Color RADHA Urine Appearance CLOUDY Urine pH 5.0 Ur Specific [place] 1.017 Urine Protein 30 H Urine Glucose (UA) NEGATIVE Urine Ketones TRACE H Urine Blood LARGE H Urine Nitrite POSITIVE H Urine Bilirubin NEGATIVE Urine Urobilinogen NEGATIVE Ur Leukocyte Esterase MODERATE H Urine WBC (Auto) 79 Urine RBC (Auto) 144 Urine Bacteria (Auto) 3+ Squamous Epi Cells Auto <1 Calcium Oxalate Cr Auto FEW Urine Mucus (Auto) OCC Urine Ascorbic Acid NEGATIVE 06/27/16 10:55 WBC RBC Hgb Hct MCV MCH MCHC RDW Plt Count Total Counted Seg Neutrophils % Seg Neuts % (Manual) Lymphocytes % Lymphocytes % (Manual) Monocytes % Monocytes % (Manual) Eosinophils % Eosinophils % (Manual) Basophils % Basophils % (Manual) Absolute Neutrophils Abs Neuts (Manual) Absolute Lymphocytes Abs Lymphs (Manual) Absolute Monocytes Abs Monocytes (Manual) Absolute Eosinophils Absolute Eos (Manual) Absolute Basophils Abs Basophils (Manual) Toxic Granulation Platelet Comment Anisocytosis PT INR VBG pH VBG pCO2 VBG HCO3 VBG Base Excess Sodium 139.8 Potassium 3.5 L Chloride 110 H Carbon Dioxide 22 Anion Gap 8 BUN 28 H Creatinine 0.91 Est GFR ( Amer) > 60 Est GFR (Non-Af Amer) > 60 Glucose 128 H Lactic Acid Calcium 7.9 L Total Bilirubin 0.5 Direct Bilirubin 0.0 AST 21 ALT 31 Alkaline Phosphatase 73 Total Protein 3.9 L Albumin 1.9 L Urine Color Urine Appearance Urine pH Ur Specific [place] Urine Protein Urine Glucose (UA) Urine Ketones Urine Blood Urine Nitrite Urine Bilirubin Urine Urobilinogen Ur Leukocyte Esterase Urine WBC (Auto) Urine RBC (Auto) Urine Bacteria (Auto) Squamous Epi Cells Auto Calcium Oxalate Cr Auto Urine Mucus (Auto) Urine Ascorbic Acid Impressions: Chest X-Ray 06/27/16 08:57 IMPRESSION: Cardiomegaly, similar to prior study. No focal infiltrates identified. Study is somewhat limited due to patient positioning. Assessment & Plan - Diagnosis (1) Altered mental state Qualifiers: Altered mental status type: transient alteration of awareness Qualified Code(s): R40.4 - Transient alteration of awareness Is this a current diagnosis for this admission?: YesPlan: secondary to sepsis supportive treatment - Oxygen reevaluate later (2) Septic shock Is this a current diagnosis for this admission?: YesPlan: treat with IV fluids - antibiotics (3) UTI (urinary tract infection) Qualifiers: Urinary tract infection type: acute cystitis Hematuria presence: with hematuria Qualified Code(s): N30.01 - Acute cystitis with hematuria Is this a current diagnosis for this admission?: YesPlan: will treat with azactam / vanco (4) Fistula into joint Is this a current diagnosis for this admission?: Yes (5) Sacral decubitus ulcer, stage II Is this a current diagnosis for this admission?: YesPlan: wet to dry dressings - Time Time Spent with patient: condition guarded admit inpatient medical unit Time Spent: Greater than 70 Minutes
[2016-06-27] MEDS: ALBUMIN HUMAN 50 ML IV SCH ×2 (19:15→21:48)
[2016-06-27] MEDS: VANCOMYCIN HCL 750 MG in DEXTROSE 5%-WATER 250 ML IV SCH (20:12)
[2016-06-27] MEDS: AZTREONAM 1 GM in DEXTROSE 5%-WATER 50 ML IV SCH (23:55)
[2016-06-28] MEDS: VANCOMYCIN HCL 750 MG in DEXTROSE 5%-WATER 250 ML IV SCH (05:33)
[2016-06-28] MEDS: AZTREONAM 1 GM in DEXTROSE 5%-WATER 50 ML IV SCH ×3 (05:33→22:13)
[2016-06-28 06:24] LABS: HGB HCT DIFFERENCE -1.1; MEAN CORPUSCULAR HEMOGLOBIN 26.6 pg (27.0-33.4); MEAN CORPUSCULAR VOLUME 83 fl (80-97); RED BLOOD COUNT 3.86 10^6/uL (3.72-5.28); WHITE BLOOD COUNT 5.8 10^3/uL (4.0-10.5)
[2016-06-28] MEDS: OXYCODONE-ACETAMINOPHEN 5-325 MG TABLET PO PRN ×3 (06:28→20:08)
[2016-06-28 06:56] LABS: BAND NEUTROPHILS % (MANUAL) 3 % (3-5); BASOPHILS % (MANUAL) 0 % (0-2); EOSINOPHILS % (MANUAL) 0 % (0-6); LYMPHOCYTES % (MANUAL) 24 % (13-45); NUCLEATED RED BLOOD CELLS 1 /100 WBC (0); TOTAL CELLS COUNTED 100
[2016-06-28 07:09] LABS: ANISOCYTOSIS 1+; BURR CELLS 1+; HYPOCHROMASIA SLIGHT; OVALOCYTES SLIGHT; PLATELET CLUMPS PRESENT; POIKILOCYTOSIS 1+; POLYCHROMASIA SLIGHT; TOXIC GRANULATION SLIGHT; TOXIC VACUOLATION PRESENT
[2016-06-28 07:10] LABS: HEMOGLOBIN 10.3 g/dL (12.0-15.5)
[2016-06-28 07:42] LABS: ANION GAP 7 (5-19); BLOOD UREA NITROGEN 23 mg/dL (7-20); CALCIUM 7.9 mg/dL (8.4-10.2); CARBON DIOXIDE 25 mmol/L (22-30); CHLORIDE 106 mmol/L (98-107); CREATININE RESULT 0.59 mg/dL (0.52-1.25); GLUCOSE 104 mg/dL (75-110); POTASSIUM 3.3 mmol/L (3.6-5.0); SODIUM 137.7 mmol/L (137-145)
--- NOTE | 2016-06-28 09:14 | EKG REPORT ---
SEVERITY:- ABNORMAL ECG - SINUS RHYTHM WITH MULTIPLE PACS. BORDERLINE INFERIOR Q WAVES NONSPECIFIC T ABNORMALITIES, LATERAL LEADS BORDERLINE PROLONGED QT INTERVAL : Confirmed by: Issac Shelley MD 28-Jun-2016 09:14:22
[2016-06-28] MEDS: ENOXAPARIN SODIUM INJ 40 MG/0.4 ML DISP.SYRIN SUBCUT SCH (10:33)
--- NOTE | 2016-06-28 16:08 | CONSULTATION REPORT E ---
Consultation Report NAME: ANGELIC HOUGH : 1940 AGE: 75Y DATE: 06/28/2016 402 A TO: SHUN SALAZAR M.D. FROM: Requesting Physician HISTORY OF PRESENT ILLNESS: The patient is an elderly 75-year-old who appears well beyond her age. She presented to the medicine service on 06/27/2016 septic secondary to urinary tract infection. She was markedly hypotensive and the initial thought on my report was to try to hydrate the patient and if there was no immediate response, to make her comfort measures only. However, her vital signs had improved markedly with hydration and now, she has consult requested for decubitus in the sacral region which was noted at the time of admission. The patient is debilitated, bedridden and has not been able to walk by history of the family because she had surgery on her left knee and on the distal left femur region laterally has an open wound which drains appears to be purulence. The family states that they were told by the orthopedic surgeon involved that the only thing to be done for this was to pack the wound. However, this is a prolonged and nonhealing wound, possibly contributing to her sepsis. The past medical history, social history, review of systems are all well documented in the medical record. Of note, the patient is very poorly communicative and has been made DNR. PHYSICAL EXAMINATION: GENERAL: A bedridden woman who is obese and unable to manage herself. She is not seemingly aware of her surroundings, but her family is present and assisting her. CHEST: She has poor breath sounds with rhonchi bilaterally. ABDOMEN: Obese, but without tenderness. SKIN: On examination of the sacral region, there is a 15 cm area of necrotic tissue which needs to be surgically debrided. This extends to sacral periosteum by vision. The patient again is moderately improving from a septic episode and *------* has requested that we consider surgical intervention on Friday. In the meantime, I have recommended frequent Dakin's solution wet-to-dry dressing changes for both the sacral lesion and the lesion on the left femoral region. The family seems to be in agreement with this recommendation. DICTATING PHYSICIAN: DELMA SALAZAR M.D. [id number] PHY#: [id number] ID: [id number] JOB#: [id number] ACCT: [id number] cc:SHUN SALAZAR M.D. >
[2016-06-28] MEDS ORDERED: TRAMADOL HCL 50 MG TABLET PO ONE (17:00)
[2016-06-28] MEDS ORDERED: VANCOMYCIN HCL 1,250 MG in DEXTROSE 5%-WATER 250 ML IV SCH (18:00)
--- NOTE | 2016-06-28 18:05 | PDOC PROGRESS REPORT ---
Subjective Progress Note for:: 06/28/16 Subjective:: Patient is a lot better today She is alert and awake complaining of pain in her back She is in no respiratory distress She has no fever no chills Her blood pressure is controlled at 120/70 Her urinary output has been adequate Urine culture showed gram-negative bacilli Physical Exam Vital Signs: Temp Pulse Resp BP Pulse Ox 98.2 F 64 14 110/55 L 98 06/28/16 17:27 06/28/16 17:27 06/28/16 17:27 06/28/16 17:27 06/28/16 17:27 Intake & Output 06/27/16 06/28/16 06/29/16 00:59 00:59 00:59 Intake Total 810 Output Total 220 600 Balance -220 210 Weight 82.3 kg 83.4 kg General appearance: PRESENT: no acute distress, well-nourished Head exam: PRESENT: atraumatic, normocephalic Eye exam: PRESENT: conjunctiva pink, EOMI, PERRLA. ABSENT: scleral icterus Neck exam: ABSENT: carotid bruit, JVD, lymphadenopathy, thyromegaly Respiratory exam: PRESENT: clear to auscultation martha. ABSENT: rales, rhonchi, wheezes Cardiovascular exam: PRESENT: RRR. ABSENT: diastolic murmur, rubs, systolic murmur Pulses: PRESENT: normal dorsalis pedis pul GI/Abdominal exam: PRESENT: normal bowel sounds, soft. ABSENT: distended, guarding, mass, organolmegaly, rebound, tenderness Skin exam: PRESENT: other - Examination of the sacral area shows stage III necrotic decubitus ulcer The ulcer is dry nondraining Skin around it is erythematous and ecchymotic Results Laboratory Results: 06/28/16 05:22 06/28/16 07:19 06/28/16 06/28/16 06/28/16 05:22 05:22 07:19 WBC 5.8 RBC 3.86 Hgb 10.3 L D Hct 32.0 L MCV 83 MCH 26.6 L MCHC 32.0 RDW 17.0 H Plt Count 194 Seg Neutrophils % Not Reportable Lymphocytes % Not Reportable Monocytes % Not Reportable Eosinophils % Not Reportable Basophils % Not Reportable Absolute Neutrophils Not Reportable Absolute Lymphocytes Not Reportable Absolute Monocytes Not Reportable Absolute Eosinophils Not Reportable Absolute Basophils Not Reportable Sodium Cancelled 137.7 Potassium Cancelled 3.3 L Chloride Cancelled 106 Carbon Dioxide Cancelled 25 Anion Gap Cancelled 7 BUN Cancelled 23 H Creatinine Cancelled 0.59 Est GFR ( Amer) Cancelled > 60 Est GFR (Non-Af Amer) Cancelled > 60 Glucose Cancelled 104 Calcium Cancelled 7.9 L 06/27/16 09:15 Urine Culture - Preliminary Trotter Catheter Gram Negative Rods Impressions: Chest X-Ray 06/27/16 08:57 IMPRESSION: Cardiomegaly, similar to prior study. No focal infiltrates identified. Study is somewhat limited due to patient positioning. Assessment & Plan - Diagnosis (1) Altered mental state Qualifiers: Altered mental status type: transient alteration of awareness Qualified Code(s): R40.4 - Transient alteration of awareness Is this a current diagnosis for this admission?: YesPlan: Has improved Altered mental status was secondary to encephalopathy Encephalopathy was secondary to early sepsis (2) Septic shock Is this a current diagnosis for this admission?: YesPlan: Has resolved; we discontinued IV fluids ; patient is taking adequate diet Continue Azactam IV We've discontinued vancomycin (3) UTI (urinary tract infection) Qualifiers: Urinary tract infection type: acute cystitis Hematuria presence: with hematuria Qualified Code(s): N30.01 - Acute cystitis with hematuria Is this a current diagnosis for this admission?: YesPlan: Gram-negative bacilli ; continue Azactam (4) Fistula into joint Is this a current diagnosis for this admission?: Yes (5) Sacral decubitus ulcer, stage II Is this a current diagnosis for this admission?: YesPlan: Surgical consult will be obtained patient will need debridement in the OR next week when clinically stable We will order pain medication as patient is quite uncomfortable - Time Time Spent with patient: 25-34 minutes
[2016-06-28] MEDS: SODIUM HYPOCHLORITE 0.25% SOLN 473 ML BOTTLE TP SCH (18:27)
[2016-06-28] MEDS: ACETAMINOPHEN 325 MG TABLET PO SCH ×2 (18:27→23:33)
[2016-06-28] MEDS: TRAMADOL HCL 50 MG TABLET PO PRN (23:33)
[2016-06-29] MEDS: NORMAL SALINE 1000 ML 1,000 ML IV PRN ×2 (01:46→16:12)
[2016-06-29] MEDS: OXYCODONE-ACETAMINOPHEN 5-325 MG TABLET PO PRN (04:09)
[2016-06-29] MEDS: ACETAMINOPHEN 325 MG TABLET PO SCH ×4 (05:33→23:23)
[2016-06-29] MEDS: AZTREONAM 1 GM in DEXTROSE 5%-WATER 50 ML IV SCH ×3 (05:37→22:24)
[2016-06-29] MEDS: SODIUM HYPOCHLORITE 0.25% SOLN 473 ML BOTTLE TP SCH ×2 (09:24→17:34)
[2016-06-29] MEDS: ENOXAPARIN SODIUM INJ 40 MG/0.4 ML DISP.SYRIN SUBCUT SCH (09:24)
[2016-06-29] MEDS ORDERED: POTASSIUM CHLORIDE 10 MEQ TABLET.SA PO ONE (12:30)
--- NOTE | 2016-06-29 17:00 | PDOC PROGRESS REPORT ---
Subjective Progress Note for:: 06/29/16 Subjective:: Patient is doing extremely well Blood pressures been stable She has still significant pain in her back, seems to have relief with Tylenol and Ultram No fever no chills No shortness of breath or chest pain Physical Exam Vital Signs: Temp Pulse Resp BP Pulse Ox 98.4 F 72 18 131/66 H 100 06/29/16 13:00 06/29/16 13:00 06/29/16 13:00 06/29/16 13:00 06/29/16 13:00 Intake & Output 06/28/16 06/29/16 06/30/16 00:59 00:59 00:59 Intake Total 2595 2810 Output Total 220 1250 700 Balance -220 1345 2110 Weight 82.3 kg 83.4 kg 74.8 kg General appearance: PRESENT: no acute distress, other - Looks chronically ill pale Head exam: PRESENT: atraumatic Eye exam: PRESENT: conjunctiva pale Neck exam: ABSENT: carotid bruit, JVD, lymphadenopathy, thyromegaly Respiratory exam: PRESENT: clear to auscultation martha. ABSENT: rales, rhonchi, wheezes Pulses: PRESENT: normal dorsalis pedis pul GI/Abdominal exam: PRESENT: normal bowel sounds, soft. ABSENT: distended, guarding, mass, organolmegaly, rebound, tenderness Neurological exam: PRESENT: awake, CN II-XII grossly intact Results Laboratory Results: 06/28/16 05:22 06/28/16 07:19 Impressions: Chest X-Ray 06/27/16 08:57 IMPRESSION: Cardiomegaly, similar to prior study. No focal infiltrates identified. Study is somewhat limited due to patient positioning. Assessment & Plan - Diagnosis (1) Altered mental state Qualifiers: Altered mental status type: transient alteration of awareness Qualified Code(s): R40.4 - Transient alteration of awareness Is this a current diagnosis for this admission?: YesPlan: Metabolic encephalopathy secondary to sepsis has resolved (2) Septic shock Is this a current diagnosis for this admission?: YesPlan: Secondary to UTI has resolved (3) UTI (urinary tract infection) Qualifiers: Urinary tract infection type: acute cystitis Hematuria presence: with hematuria Qualified Code(s): N30.01 - Acute cystitis with hematuria Is this a current diagnosis for this admission?: YesPlan: Gram-negative bacilli were cultured Identification and sensitivity still pending continue Azactam (4) Fistula into joint Is this a current diagnosis for this admission?: Yes (5) Sacral decubitus ulcer, stage II Is this a current diagnosis for this admission?: YesPlan: Patient was evaluated by general surgery She will need debridement in the OR next week when clinically stable - Time Time Spent with patient: Continue the present management Her blood culture was positive for gram-positive bacilli, Corynebacterium likely secondary to contamination Time Spent with patient: 15-24 minutes
--- NOTE | 2016-06-29 18:48 | PROGRESS NOTE E ---
Progress Note NAME: ANGELIC HOUGH : 1940 AGE: 75Y DATE: 06/29/2016 ROOM: 402 SUBJECTIVE: The patient has no significant change in her status. Her wound on the sacral region is being dressed with quarter-strength Dakin's wet-to-dry and is unchanged. The lesion on her left distal femur region continues to drain purulent material. The family is vacillating on what further care is to be recommended. Should her physician and her family decide to proceed with aggressive management, then there should be surgical debridement of her sacral decubitus. Again, this is being deferred until early in the week at the recommendation of the patient's hospitalist. With regard to the lesion on her left femur, this is a chronic lesion, and this appears to be related to an orthopedic intervention. Should further therapy be recommended, I would suggest MRI of this distal femur to rule out deep osteomyelitis. DICTATING PHYSICIAN: DELMA SALAZAR M.D. [id number] Y#: [id number] ID: [id number] JOB#: [id number] ACCT: [id number] cc:SHUN SALAZAR M.D. >
[2016-06-30] MEDS: AZTREONAM 1 GM in DEXTROSE 5%-WATER 50 ML IV SCH ×3 (06:16→21:15)
[2016-06-30] MEDS: NORMAL SALINE 1000 ML 1,000 ML IV PRN ×2 (06:16→21:15)
[2016-06-30] MEDS: ACETAMINOPHEN 325 MG TABLET PO SCH ×4 (06:17→23:28)
[2016-06-30 06:41] LABS: ANION GAP 8 (5-19); BLOOD UREA NITROGEN 9 mg/dL (7-20); CALCIUM 8.9 mg/dL (8.4-10.2); CARBON DIOXIDE 25 mmol/L (22-30); CHLORIDE 111 mmol/L (98-107); CREATININE RESULT 0.44 mg/dL (0.52-1.25); GLUCOSE 79 mg/dL (75-110); MAGNESIUM 1.8 mg/dL (1.6-2.3); POTASSIUM 4.4 mmol/L (3.6-5.0); SODIUM 143.6 mmol/L (137-145)
[2016-06-30] MEDS: ENOXAPARIN SODIUM INJ 40 MG/0.4 ML DISP.SYRIN SUBCUT SCH (08:46)
[2016-06-30] MEDS: SODIUM HYPOCHLORITE 0.25% SOLN 473 ML BOTTLE TP SCH ×2 (10:43→16:56)
--- NOTE | 2016-06-30 10:51 | PDOC PROGRESS REPORT ---
Subjective Progress Note for:: 06/30/16 Subjective:: Patient is doing extremely well No fever no chills alert and awake Hemodynamically stable She will be scheduled tomorrow for debridement of the sacral decubitus in the OR Procedure to be done under conscious sedation and local anesthesia She still on Azactam IV that we will continue until cultures and sensitivity of the sacral decubitus is available Physical Exam Vital Signs: Temp Pulse Resp BP Pulse Ox 98.3 F 65 16 153/77 H 100 06/30/16 07:53 06/30/16 07:53 06/30/16 07:53 06/30/16 07:53 06/30/16 07:53 Intake & Output 06/29/16 06/30/16 07/01/16 00:59 00:59 00:59 Intake Total 2595 4131 628 Output Total 1250 2350 300 Balance 1345 1781 328 Weight 83.4 kg 74.8 kg 70 kg General appearance: PRESENT: no acute distress, cooperative Head exam: PRESENT: atraumatic, normocephalic Eye exam: PRESENT: conjunctiva pink, EOMI, PERRLA. ABSENT: scleral icterus Neck exam: ABSENT: carotid bruit, JVD, lymphadenopathy, thyromegaly Respiratory exam: PRESENT: clear to auscultation martha. ABSENT: rales, rhonchi, wheezes Cardiovascular exam: PRESENT: RRR. ABSENT: diastolic murmur, rubs, systolic murmur Pulses: PRESENT: normal dorsalis pedis pul GI/Abdominal exam: PRESENT: normal bowel sounds, soft. ABSENT: distended, guarding, mass, organolmegaly, rebound, tenderness Neurological exam: PRESENT: CN II-XII grossly intact Results Laboratory Results: 06/28/16 05:22 06/30/16 05:29 06/30/16 05:29 Sodium 143.6 Potassium 4.4 Chloride 111 H Carbon Dioxide 25 Anion Gap 8 BUN 9 Creatinine 0.44 L Est GFR ( Amer) > 60 Est GFR (Non-Af Amer) > 60 Glucose 79 Calcium 8.9 Magnesium 1.8 Impressions: Chest X-Ray 06/27/16 08:57 IMPRESSION: Cardiomegaly, similar to prior study. No focal infiltrates identified. Study is somewhat limited due to patient positioning. Assessment & Plan - Diagnosis (1) Altered mental state Qualifiers: Altered mental status type: transient alteration of awareness Qualified Code(s): R40.4 - Transient alteration of awareness Is this a current diagnosis for this admission?: Yes (2) Septic shock Is this a current diagnosis for this admission?: Yes (3) UTI (urinary tract infection) Qualifiers: Urinary tract infection type: acute cystitis Hematuria presence: with hematuria Qualified Code(s): N30.01 - Acute cystitis with hematuria Is this a current diagnosis for this admission?: Yes (4) Fistula into joint Is this a current diagnosis for this admission?: Yes (5) Sacral decubitus ulcer, stage II Is this a current diagnosis for this admission?: Yes - Time Time Spent with patient: Continue present management To OR in am for debridement sacral decubitus Time Spent with patient: 25-34 minutes
--- NOTE | 2016-06-30 10:53 | PROGRESS NOTE E ---
Progress Note NAME: ANGELIC HOUGH : 1940 AGE: 75Y DATE: 06/30/2016 ROOM: 402 The patient is a 75-year-old woman, very debilitated secondary to dementia. She is improving in her medical status. Her vital signs are stable. She is afebrile. Her white count has normalized. Her hemoglobin is stable in the 10 range. She has a decubitus in the sacral region which is essentially unchanged and is managed very nicely by the nursing staff with wet-to-dry Dakin solution dressing changes b.i.d. Surgical debridement is indicated, and this is pending medical clearance and decision on the part of the family. DICTATING PHYSICIAN: DELMA SALAZAR M.D. [id number] PHY#: [id number] ID: [id number] JOB#: [id number] ACCT: [id number] cc: > MTDD
[2016-06-30] MEDS: OXYCODONE-ACETAMINOPHEN 5-325 MG TABLET PO PRN (16:54)
[2016-07-01] MEDS: ACETAMINOPHEN 325 MG TABLET PO SCH ×3 (05:19→18:25)
[2016-07-01] MEDS: AZTREONAM 1 GM in DEXTROSE 5%-WATER 50 ML IV SCH ×3 (05:25→21:16)
[2016-07-01] MEDS: OXYCODONE-ACETAMINOPHEN 5-325 MG TABLET PO PRN ×3 (06:17→23:59)
[2016-07-01] MEDS: TRAMADOL HCL 50 MG TABLET PO PRN ×2 (10:51→15:49)
[2016-07-01] MEDS: SODIUM HYPOCHLORITE 0.25% SOLN 473 ML BOTTLE TP SCH ×2 (11:17→18:22)
[2016-07-01] MEDS: ENOXAPARIN SODIUM INJ 40 MG/0.4 ML DISP.SYRIN SUBCUT SCH (11:17)
[2016-07-01] MEDS: NORMAL SALINE 1000 ML 1,000 ML IV PRN (11:33)
[2016-07-01] MEDS ORDERED: TRAZODONE HCL 50 MG TABLET PO PRN (11:41)
[2016-07-01] MEDS ORDERED: FENTANYL 50 MCG/HR PATCH.TD72 TD SCH (11:45)
[2016-07-01] MEDS ORDERED: CYANOCOBALAMIN (VITAMIN B-12) 1,000 MCG TABLET PO ONE (12:30)
[2016-07-01] MEDS ORDERED: FENTANYL 25 MCG/HR PATCH.TD72 TD ONE (13:00)
[2016-07-01] MEDS: GABAPENTIN 300 MG CAPSULE PO SCH ×2 (13:52→21:16)
--- NOTE | 2016-07-01 14:01 | Operative Report ---
Operative Report DATE OF SURGERY: 07/01/16 PREOPERATIVE DIAGNOSIS: Stage IV decubitus, sacral POSTOPERATIVE DIAGNOSIS: Same OPERATION: 1. Excisional debridement stage IV sacral decubitus using scissors, tenotomy, and #10 blade. SURGEON: CHADWICK [employer]: none TISSUE REMOVED OR ALTERED: skin and subcutaneous tissue and fascia COMPLICATIONS: None ESTIMATED BLOOD LOSS: Scant INTRAOPERATIVE FINDINGS: See below PROCEDURE: Consent was obtained. Patient was the right lateral decubitus position. Sacral promontory exposed. A significant full-thickness eschar and devitalized skin with purulent discharge emanating from a central to slightly left of midline sacral decubitus , stage IV. The left skin flap was viable so it was not completely excised. Office skin and subcutaneous tissue was debrided in a circumferential fashion using the pickups removing roughly 4 g of tissue, 1 x 3 x 2 cm. We did get down to some bleeding fascia. There was a pocket of nonviable fat in the left inferior portion which was debrided. Wound was irrigated with saline, moistened gauze overlay Allevyn dressing applied. Patient tolerated the procedure well. Instructions for pressure offloading and future dressing changes provided.
--- NOTE | 2016-07-01 16:08 | PDOC PROGRESS REPORT ---
Subjective Progress Note for:: 07/01/16 Subjective:: Patient is doing well ;she was complaining of pain in her low back ; the a sacral decubitus was debrided today by Dr Cabrera She is alert and awake we have resumed some of her medications But decreased the fentanyl patch, and adjusted psych medications which were prepped prescribed prior We feel strongly that patient was overmedicated and it may explain partly the altered mental status on admission For instance patient was on 4 mg Risperdal at night, 450 mg of bupropion, 50 mg trazodone... We did resume the fentanyl patches 25 g q3days and we will continue oxycodone as needed as well as Ultram when necessary Fever chills have disappeared She is hemodynamically stable Physical Exam Vital Signs: Temp Pulse Resp BP Pulse Ox 97.5 F 64 20 155/69 H 100 07/01/16 12:06 07/01/16 12:06 07/01/16 12:06 07/01/16 12:06 07/01/16 12:06 Intake & Output 06/30/16 07/01/16 07/02/16 00:59 00:59 00:59 Intake Total 4131 1748 1000 Output Total 2350 1650 600 Balance 1781 98 400 Weight 74.8 kg 70 kg 75.7 kg General appearance: PRESENT: no acute distress Head exam: PRESENT: atraumatic, normocephalic Eye exam: PRESENT: conjunctiva pink, EOMI, PERRLA. ABSENT: scleral icterus Neck exam: ABSENT: carotid bruit, JVD, lymphadenopathy, thyromegaly Respiratory exam: PRESENT: clear to auscultation martha. ABSENT: rales, rhonchi, wheezes Pulses: PRESENT: normal dorsalis pedis pul GI/Abdominal exam: PRESENT: normal bowel sounds, soft. ABSENT: distended, guarding, mass, organolmegaly, rebound, tenderness Extremities exam: PRESENT: full ROM. ABSENT: calf tenderness, clubbing, pedal edema Neurological exam: PRESENT: awake, CN II-XII grossly intact Results Laboratory Results: 06/28/16 05:22 06/30/16 05:29 Impressions: Chest X-Ray 06/27/16 08:57 IMPRESSION: Cardiomegaly, similar to prior study. No focal infiltrates identified. Study is somewhat limited due to patient positioning. Assessment & Plan - Diagnosis (1) Altered mental state Qualifiers: Altered mental status type: transient alteration of awareness Qualified Code(s): R40.4 - Transient alteration of awareness Is this a current diagnosis for this admission?: YesPlan: Encephalopathy secondary to sepsis, hypotension, medications has improved Patient is back to her baseline She is alert and awake and is conversing with her family (2) Septic shock Is this a current diagnosis for this admission?: YesPlan: Secondary to UTI and infected sacral decubitus ulcer Has resolved Continue Azactam Awaiting results of the culture of the decubitus ulcer (3) UTI (urinary tract infection) Qualifiers: Urinary tract infection type: acute cystitis Hematuria presence: with hematuria Qualified Code(s): N30.01 - Acute cystitis with hematuria Is this a current diagnosis for this admission?: YesPlan: Escherichia coli UTI Bacteria was not tested against Azactam, but patient's condition has improved greatly We will continue this present management (4) Fistula into joint Is this a current diagnosis for this admission?: Yes (5) Sacral decubitus ulcer, stage II Is this a current diagnosis for this admission?: YesPlan: Decubitus ulcer was debrided Await cultures Dressings to be changed daily (6) Discharge planning issues Is this a current diagnosis for this admission?: YesPlan: Patient is now cared for at home by family It may be beneficial for her to be in the terminal [facility] facility were more sophisticated care and 24 hour care can be provide - Time Time Spent with patient: 25-34 minutes
[2016-07-01] MEDS ORDERED: (PENDING PHARMACY ID) (Tolterodine Tartrate [Detrol] 2 MG) PO SCH (18:00)
[2016-07-01] MEDS ORDERED: GABAPENTIN 300 MG CAPSULE PO SCH ×2 (18:00→22:00)
[2016-07-01] MEDS: RIVAROXABAN 10 MG TABLET PO SCH (18:21)
[2016-07-01] MEDS: DOCUSATE SODIUM 100 MG CAPSULE PO SCH (18:22)
[2016-07-01] MEDS: TOLTERODINE TARTRATE 1 MG TABLET PO SCH (18:22)
[2016-07-01] MEDS: FLUTICASONE NASAL SPRAY 50 MCG/SPRY 120 SPRAY/16 GM NASL SCH (18:25)
[2016-07-01] MEDS: ATORVASTATIN CALCIUM 10 MG TABLET PO SCH (21:15)
[2016-07-01] MEDS: BUPROPION HCL 75 MG TABLET PO SCH (21:16)
[2016-07-01] MEDS: RISPERIDONE 1 MG TABLET PO SCH (21:16)
[2016-07-01] MEDS: MIRTAZAPINE 15 MG TABLET PO SCH (21:16)
[2016-07-01] MEDS ORDERED: RIVAROXABAN 10 MG TABLET PO SCH (22:00)
[2016-07-01] MEDS ORDERED: RISPERIDONE 1 MG PO SCH (22:00)
[2016-07-02] MEDS: OXYCODONE-ACETAMINOPHEN 5-325 MG TABLET PO PRN ×2 (04:06→08:11)
[2016-07-02] MEDS: LANSOPRAZOLE 30 MG TAB.RAP.DR PO SCH (05:23)
[2016-07-02] MEDS: GABAPENTIN 300 MG CAPSULE PO SCH ×3 (05:23→21:47)
[2016-07-02] MEDS: AZTREONAM 1 GM in DEXTROSE 5%-WATER 50 ML IV SCH ×3 (05:23→21:47)
[2016-07-02] MEDS: ACETAMINOPHEN 325 MG TABLET PO SCH ×4 (05:24→17:58)
[2016-07-02 05:51] LABS: ANION GAP 7 (5-19); BLOOD UREA NITROGEN 7 mg/dL (7-20); CALCIUM 8.9 mg/dL (8.4-10.2); CARBON DIOXIDE 31 mmol/L (22-30); CHLORIDE 108 mmol/L (98-107); GLUCOSE 85 mg/dL (75-110); SODIUM 145.8 mmol/L (137-145)
[2016-07-02 06:04] LABS: HEMATOCRIT 36.4 % (36.0-47.0); HEMOGLOBIN 11.6 g/dL (12.0-15.5); HGB HCT DIFFERENCE -1.6; MEAN CORPUSCULAR HEMOGLOBIN 26.3 pg (27.0-33.4); MEAN CORPUSCULAR HGB CONC 31.8 g/dL (32.0-36.0); MEAN CORPUSCULAR VOLUME 83 fl (80-97); RED BLOOD COUNT 4.39 10^6/uL (3.72-5.28); RED CELL DISTRIBUTION WIDTH 16.4 % (11.5-14.0); WHITE BLOOD COUNT 5.8 10^3/uL (4.0-10.5)
[2016-07-02 06:22] LABS: BASOPHILS % (MANUAL) 0 % (0-2); EOSINOPHILS % (MANUAL) 3 % (0-6); LYMPHOCYTES % (MANUAL) 31 % (13-45); TOTAL CELLS COUNTED 100
[2016-07-02 06:23] LABS: ANISOCYTOSIS SLIGHT; OVALOCYTES 1+; PLATELET CLUMPS PRESENT; POIKILOCYTOSIS 1+
[2016-07-02] MEDS ORDERED: POTASSIUM CHLORIDE 10 MEQ TABLET.SA PO ONE (07:00)
[2016-07-02] MEDS ORDERED: (PENDING PHARMACY ID) (Bupropion Hcl [Wellbutrin Sr 150 Mg Tablet] 150 MG) PO SCH (08:00)
[2016-07-02] MEDS ORDERED: BUPROPION HCL 450 MG PO SCH (08:00)
[2016-07-02] MEDS ORDERED: (PENDING PHARMACY ID) (Cyanocobalamin (Vitamin B-12) [Vitamin B-12] 2,000 MCG) PO SCH (10:00)
[2016-07-02] MEDS ORDERED: (PENDING PHARMACY ID) (Umeclidinium Brm/Vilanterol Tr [Anoro Ellipta 62.5-25 Mcg Inh] 1 PU IH SCH (10:00)
[2016-07-02] MEDS: CYANOCOBALAMIN (VITAMIN B-12) 1,000 MCG TABLET PO SCH (10:35)
[2016-07-02] MEDS: ESCITALOPRAM OXALATE 10 MG TABLET PO SCH (10:35)
[2016-07-02] MEDS: BUPROPION HCL 75 MG TABLET PO SCH ×2 (10:35→21:47)
[2016-07-02] MEDS: DOCUSATE SODIUM 100 MG CAPSULE PO SCH ×2 (10:36→17:58)
[2016-07-02] MEDS: SODIUM HYPOCHLORITE 0.25% SOLN 473 ML BOTTLE TP SCH ×2 (10:36→18:10)
[2016-07-02] MEDS: TOLTERODINE TARTRATE 1 MG TABLET PO SCH ×2 (10:36→18:09)
[2016-07-02] MEDS: FLUTICASONE NASAL SPRAY 50 MCG/SPRY 120 SPRAY/16 GM NASL SCH ×2 (10:36→18:09)
--- NOTE | 2016-07-02 10:51 | PDOC PROGRESS REPORT ---
Subjective Progress Note for:: 07/02/16 Subjective:: Reason for visit: Follow-up altered mental status, UTI, stage IV sacral decubitus ulcer Hospital course: Per H&P "ANGELIC HOUGH is a 75 year old female chronically debilitated, bedbound , recently discharged from [place] was brought with altered mentation In the ED she was diagnosed of UTI - sepsis subsequently admitted to medical unit under Hospitalist service Patient is DNR - no pressors She was managed with IV fluids , azactam and Vancomycin. the a sacral decubitus was debrided today by Dr Cabrera and we decreased the fentanyl patch, and adjusted psych medications which were prepped prescribed prior We feel strongly that patient was overmedicated and it may explain partly the altered mental status on admission For instance patient was on 4 mg Risperdal at night, 450 mg of bupropion, 50 mg trazodone... " The patient's mental state seems to have returned to baseline according to family at the bedside. She is back to the mental condition when I saw her last. Subjective: She denies chest pain, palpitations, fever, chills, nausea, vomiting , diarrhea. He reports persistent pain in her sacrum described as sharp, throbbing, worse with certain positions, nothing makes it better, no other associated symptoms and nonradiating. ROS: per HPI plus a total of 10 systems reviewed, pertinent positives and negatives noted above, remaining systems negative. Physical Exam Vital Signs: Temp Pulse Resp BP Pulse Ox 97.3 F 77 18 106/54 L 100 07/01/16 23:23 07/01/16 23:23 07/01/16 23:23 07/01/16 23:23 07/02/16 01:18 Intake & Output 07/01/16 07/02/16 07/03/16 06:59 06:59 06:59 Intake Total 2120 2607 Output Total 1350 3700 Balance 770 -1093 Weight 75.7 kg 76.1 kg EXAM GENERAL: NAD; well developed, well nourished; no obese; alert and oriented to person, place,, situation HEENT: normocephalic, atraumatic; no conjunctival injection, no scleral icterus ; oral mucosa dry; RESPIRATORY: no accessory muscle use, no increased WOB, good air entry bilaterally; no wheezes, rales, rhonchi; CARDIO: RRR; no systolic murmur; no tachycardia GI: soft; nondistended; normal bowel sounds; no rebound, rigidity, guarding; nontender VASCULAR: no pallor; 2+ radial, DP pulse; normal capillary refill EXTREMITIES: no calf tender; no palpable cords in calf; no clubbing, cyanosis , pedal edema; left lateral knee has persistent fistula track draining creamy white fluid saturating the current bandage PSYCH: Flat affect, depressed mood SKIN: warm; moist; no petechiae; no telengectasias; no jaundice; stage IV sacral decubitus ulcer covered with heavy bandage at present Results Laboratory Results: 07/02/16 04:25 07/02/16 04:25 07/02/16 07/02/16 04:25 04:25 WBC 5.8 RBC 4.39 Hgb 11.6 L Hct 36.4 MCV 83 MCH 26.3 L MCHC 31.8 L RDW 16.4 H Plt Count 215 Seg Neutrophils % Not Reportable Lymphocytes % Not Reportable Monocytes % Not Reportable Eosinophils % Not Reportable Basophils % Not Reportable Absolute Neutrophils Not Reportable Absolute Lymphocytes Not Reportable Absolute Monocytes Not Reportable Absolute Eosinophils Not Reportable Absolute Basophils Not Reportable Sodium 145.8 H Potassium 3.0 L* Chloride 108 H Carbon Dioxide 31 H Anion Gap 7 BUN 7 Creatinine 0.40 L Est GFR ( Amer) > 60 Est GFR (Non-Af Amer) > 60 Glucose 85 Calcium 8.9 Labs reviewed, hypokalemia noted and replaced by nighttime doctor Assessment & Plan - Diagnosis (1) Sacral decubitus ulcer, stage IV Is this a current diagnosis for this admission?: YesPlan: Present on admission. Status post [facility] by general surgery. Continue topical care, offloading as tolerated, diverting Trotter catheter temporarily. (2) Altered mental state Qualifiers: Altered mental status type: transient alteration of awareness Qualified Code(s): R40.4 - Transient alteration of awareness Is this a current diagnosis for this admission?: YesPlan: Resolved. Likely Secondary to the acute infection complicated by polypharmacy. (3) UTI (urinary tract infection) Qualifiers: Urinary tract infection type: acute cystitis Hematuria presence: with hematuria Qualified Code(s): N30.01 - Acute cystitis with hematuria Is this a current diagnosis for this admission?: YesPlan: Secondary to multidrug resistant Escherichia coli susceptible to current antibiotics. (4) Fistula into joint Is this a current diagnosis for this admission?: YesPlan: Continue daily wound packing and dressing changes. (5) Discharge planning issues Is this a current diagnosis for this admission?: YesPlan: Family and patient hoping for halfway facility and rehabilitation placement at discharge, hopefully in the next 48 hours. Consult PT to establish her baseline functional status and rehabilitation potential. (6) Septic shock Is this a current diagnosis for this admission?: YesPlan: Resolved with broad-spectrum antibiotics and IV fluids. (7) Hypokalemia Is this a current diagnosis for this admission?: YesPlan: Replace and monitor, check again in the morning with a magnesium level and replace as needed. - Time Time Spent with patient: 25-34 minutes Anticipated discharge: Acute Rehab Within: within 48 hours
[2016-07-02] MEDS: NORMAL SALINE 1000 ML 1,000 ML IV PRN ×2 (11:29→21:45)
[2016-07-02] MEDS: RIVAROXABAN 10 MG TABLET PO SCH (18:10)
[2016-07-02] MEDS: MIRTAZAPINE 15 MG TABLET PO SCH (21:47)
[2016-07-02] MEDS: RISPERIDONE 1 MG TABLET PO SCH (21:47)
[2016-07-02] MEDS: ATORVASTATIN CALCIUM 10 MG TABLET PO SCH (21:47)
[2016-07-03] MEDS: ACETAMINOPHEN 325 MG TABLET PO SCH ×4 (00:09→18:41)
[2016-07-03] MEDS: OXYCODONE-ACETAMINOPHEN 5-325 MG TABLET PO PRN ×2 (02:05→14:08)
[2016-07-03] MEDS: TRAMADOL HCL 50 MG TABLET PO PRN ×2 (03:46→20:33)
[2016-07-03] MEDS: GABAPENTIN 300 MG CAPSULE PO SCH ×3 (05:29→21:14)
[2016-07-03] MEDS: LANSOPRAZOLE 30 MG TAB.RAP.DR PO SCH (05:29)
[2016-07-03] MEDS: AZTREONAM 1 GM in DEXTROSE 5%-WATER 50 ML IV SCH ×3 (05:29→21:17)
[2016-07-03 06:42] LABS: ANION GAP 6 (5-19); BLOOD UREA NITROGEN 10 mg/dL (7-20); CALCIUM 8.5 mg/dL (8.4-10.2); CARBON DIOXIDE 32 mmol/L (22-30); CHLORIDE 106 mmol/L (98-107); CREATININE RESULT 0.46 mg/dL (0.52-1.25); GLUCOSE 88 mg/dL (75-110); MAGNESIUM 1.8 mg/dL (1.6-2.3); POTASSIUM 3.3 mmol/L (3.6-5.0)
[2016-07-03] MEDS ORDERED: POLYETHYLENE GLYCOL 3350 POWDER 17 GM/1 PACKET PO PRN (09:28)
[2016-07-03] MEDS: BUPROPION HCL 75 MG TABLET PO SCH ×2 (09:40→21:13)
[2016-07-03] MEDS: DOCUSATE SODIUM 100 MG CAPSULE PO SCH ×2 (09:40→18:41)
[2016-07-03] MEDS: CYANOCOBALAMIN (VITAMIN B-12) 1,000 MCG TABLET PO SCH (09:41)
[2016-07-03] MEDS: FLUTICASONE NASAL SPRAY 50 MCG/SPRY 120 SPRAY/16 GM NASL SCH ×2 (09:41→18:22)
[2016-07-03] MEDS: ESCITALOPRAM OXALATE 10 MG TABLET PO SCH (09:41)
[2016-07-03] MEDS: TOLTERODINE TARTRATE 1 MG TABLET PO SCH ×2 (09:41→18:22)
[2016-07-03] MEDS: SODIUM HYPOCHLORITE 0.25% SOLN 473 ML BOTTLE TP SCH ×2 (09:42→18:23)
[2016-07-03] MEDS: POTASSIUM CHLORIDE 10 MEQ TABLET.SA PO SCH ×2 (09:49→21:13)
--- NOTE | 2016-07-03 13:41 | PDOC PROGRESS REPORT ---
Subjective Progress Note for:: 07/03/16 Subjective:: Reason for visit: Follow-up altered mental status, UTI, stage IV sacral decubitus ulcer Hospital course: Per H&P "ANGELIC HOUGH is a 75 year old female chronically debilitated, bedbound , recently discharged from [place] was brought with altered mentation In the ED she was diagnosed of UTI - sepsis subsequently admitted to medical unit under Hospitalist service Patient is DNR - no pressors She was managed with IV fluids , azactam and Vancomycin. the a sacral decubitus was debrided today by Dr Cabrera and we decreased the fentanyl patch, and adjusted psych medications which were prepped prescribed prior We feel strongly that patient was overmedicated and it may explain partly the altered mental status on admission For instance patient was on 4 mg Risperdal at night, 450 mg of bupropion, 50 mg trazodone... " The patient's mental state seems to have returned to baseline according to family at the bedside. She is back to the mental condition when I saw her last admission. she appears a bit fluid overloaded at present with developing pedal edema and third spacing noted. Subjective: She denies chest pain, palpitations, fever, chills, nausea, vomiting , diarrhea. She again reports persistent pain in her sacrum described as sharp , throbbing, worse with certain positions, nothing makes it better, no other associated symptoms and nonradiating. ROS: per HPI plus a total of 10 systems reviewed, pertinent positives and negatives noted above, remaining systems negative. Physical Exam Vital Signs: Temp Pulse Resp BP Pulse Ox 98.3 F 73 16 127/60 H 100 07/03/16 10:58 07/03/16 10:58 07/03/16 10:58 07/03/16 10:58 07/03/16 10:58 Intake & Output 07/02/16 07/03/16 07/04/16 06:59 06:59 06:59 Intake Total 5903 3127 Output Total 5529 9320 Balance -1093 1167 Weight 76.1 kg 80.1 kg EXAM GENERAL: NAD; well developed, well nourished; no obese; alert and oriented to person, place, situation HEENT: normocephalic, atraumatic; no conjunctival injection, no scleral icterus ; oral mucosa dry; RESPIRATORY: no accessory muscle use, no increased WOB, good air entry bilaterally; no wheezes, rhonchi; rales at the bases CARDIO: RRR; soft systolic murmur; no tachycardia GI: soft; nondistended; normal bowel sounds; no rebound, rigidity, guarding; nontender VASCULAR: no pallor; 2+ radial, DP pulse; normal capillary refill EXTREMITIES: no calf tender; no palpable cords in calf; no clubbing, cyanosis ; 1+ bilateral pedal edema; left lateral knee has persistent fistula track draining creamy white fluid iodoform packing and bandage in place, no surrounding erythema or cellulitis PSYCH: Flat affect, depressed mood SKIN: warm; moist; no petechiae; no telengectasias; no jaundice; stage IV sacral decubitus ulcer covered with heavy bandage at present, malodorous Results Laboratory Results: 07/02/16 04:25 07/03/16 05:19 07/03/16 05:19 Sodium 144.0 Potassium 3.3 L Chloride 106 Carbon Dioxide 32 H Anion Gap 6 BUN 10 Creatinine 0.46 L Est GFR ( Amer) > 60 Est GFR (Non-Af Amer) > 60 Glucose 88 Calcium 8.5 Magnesium 1.8 labs reviewed, K improved but still a little low; lytes reassuring otherwise, renal function remains good Assessment & Plan - Diagnosis (1) Sacral decubitus ulcer, stage IV Is this a current diagnosis for this admission?: YesPlan: Present on admission. Status post bedside I&D by general surgery of nonviable tissue. Continue topical care/dressing changes, offloading as tolerated, diverting Tortter catheter temporarily. (2) Altered mental state Qualifiers: Altered mental status type: transient alteration of awareness Qualified Code(s): R40.4 - Transient alteration of awareness Is this a current diagnosis for this admission?: YesPlan: Resolved. Likely Secondary to the acute infection complicated by polypharmacy. (3) Hypokalemia Is this a current diagnosis for this admission?: YesPlan: increase oral replacement and monitor again in am. (4) UTI (urinary tract infection) Qualifiers: Urinary tract infection type: acute cystitis Hematuria presence: with hematuria Qualified Code(s): N30.01 - Acute cystitis with hematuria Is this a current diagnosis for this admission?: YesPlan: Secondary to multidrug resistant Escherichia coli susceptible to current antibiotics. (5) Fistula into joint Is this a current diagnosis for this admission?: Yes (6) Discharge planning issues Is this a current diagnosis for this admission?: Yes (7) Septic shock Is this a current diagnosis for this admission?: Yes - Time Time Spent with patient: 15-24 minutes Medications reviewed and adjusted accordingly: Yes Anticipated discharge: Acute Rehab - bed offer at [facility] Within: within 24 hours - anticipate she will be ready for d/c in the morning barring any new events overnight - Plan Summary Plan Summary: she will need continued IV abx for at least another 10d then re-eval by her PCP. further wound debridement per general surgery, will likely benefit from outpt wound care clinic referral as well.
[2016-07-03] MEDS: RIVAROXABAN 10 MG TABLET PO SCH (18:23)
[2016-07-03] MEDS: MIRTAZAPINE 15 MG TABLET PO SCH (21:13)
[2016-07-03] MEDS: ATORVASTATIN CALCIUM 10 MG TABLET PO SCH (21:13)
[2016-07-03] MEDS: RISPERIDONE 1 MG TABLET PO SCH (21:17)
[2016-07-04] MEDS: ACETAMINOPHEN 325 MG TABLET PO SCH ×5 (00:30→23:16)
[2016-07-04] MEDS: OXYCODONE-ACETAMINOPHEN 5-325 MG TABLET PO PRN (03:51)
[2016-07-04] MEDS: AZTREONAM 1 GM in DEXTROSE 5%-WATER 50 ML IV SCH ×2 (05:33→14:23)
[2016-07-04] MEDS: GABAPENTIN 300 MG CAPSULE PO SCH ×3 (05:33→22:04)
[2016-07-04] MEDS: LANSOPRAZOLE 30 MG TAB.RAP.DR PO SCH (05:33)
[2016-07-04] MEDS: TOLTERODINE TARTRATE 1 MG TABLET PO SCH ×2 (09:33→18:34)
[2016-07-04] MEDS: CYANOCOBALAMIN (VITAMIN B-12) 1,000 MCG TABLET PO SCH (09:34)
[2016-07-04] MEDS: DOCUSATE SODIUM 100 MG CAPSULE PO SCH ×2 (09:34→18:34)
[2016-07-04] MEDS: BUPROPION HCL 75 MG TABLET PO SCH ×2 (09:34→22:04)
[2016-07-04] MEDS: FLUTICASONE NASAL SPRAY 50 MCG/SPRY 120 SPRAY/16 GM NASL SCH ×2 (09:34→18:34)
[2016-07-04] MEDS: ESCITALOPRAM OXALATE 10 MG TABLET PO SCH (09:34)
[2016-07-04] MEDS: POTASSIUM CHLORIDE 10 MEQ TABLET.SA PO SCH ×2 (09:34→22:04)
[2016-07-04] MEDS ORDERED: FENTANYL 25 MCG/HR PATCH.TD72 TD SCH (10:00)
--- NOTE | 2016-07-04 13:53 | PDOC PROGRESS REPORT ---
Subjective Progress Note for:: 07/04/16 Subjective:: Reason for visit: Follow-up altered mental status, UTI, stage IV sacral decubitus ulcer Hospital course: Per H&P "ANGELIC HOUGH is a 75 year old female chronically debilitated, bedbound , recently discharged from [place] was brought with altered mentation In the ED she was diagnosed of UTI - sepsis subsequently admitted to medical unit under Hospitalist service Patient is DNR - no pressors She was managed with IV fluids , azactam and Vancomycin. the a sacral decubitus was debrided today by Dr Cabrera and we decreased the fentanyl patch, and adjusted psych medications which were prepped prescribed prior We feel strongly that patient was overmedicated and it may explain partly the altered mental status on admission For instance patient was on 4 mg Risperdal at night, 450 mg of bupropion, 50 mg trazodone... " The patient's mental state seems to have returned to baseline according to family I spoke with earlier. She is back to the mental condition when I saw her last admission. she developed a bit of fluid overload with developing pedal edema and third spacing noted; this has responded to cessation of IVFs. the wound culture shows predominantly E Faecalis and Providentia. Subjective: She denies chest pain, palpitations, fever, chills, nausea, vomiting , diarrhea. She again reports persistent pain in her sacrum described as sharp , throbbing, worse with certain positions, nothing makes it better, no other associated symptoms and nonradiating. ROS: per HPI plus a total of 10 systems reviewed, pertinent positives and negatives noted above, remaining systems negative. Physical Exam Vital Signs: Temp Pulse Resp BP Pulse Ox 98.6 F 77 16 133/65 H 98 07/04/16 11:05 07/04/16 11:05 07/04/16 11:05 07/04/16 11:05 07/04/16 11:05 Intake & Output 07/03/16 07/04/16 07/05/16 06:59 06:59 06:59 Intake Total 6577 134 Output Total 8965 7820 Balance 1166 -2009 Weight 80.1 kg 77.5 kg EXAM GENERAL: NAD; well developed, well nourished; no obese; alert and oriented to person, place, situation HEENT: normocephalic, atraumatic; no conjunctival injection, no scleral icterus ; oral mucosa dry; RESPIRATORY: no accessory muscle use, no increased WOB, good air entry bilaterally; no wheezes, rhonchi CARDIO: RRR; soft systolic murmur as before; no tachycardia GI: soft; nondistended; normal bowel sounds; no rebound, rigidity, guarding; nontender VASCULAR: no pallor; 2+ radial, DP pulse; normal capillary refill EXTREMITIES: no calf tender; no palpable cords in calf; no clubbing, cyanosis ; trace bilateral pedal edema; left lateral knee has persistent fistula track draining creamy white fluid with iodoform packing and bandage in place, no surrounding erythema or cellulitis PSYCH: Flat affect, depressed mood SKIN: warm; moist; no petechiae; no telengectasias; no jaundice; stage IV sacral decubitus ulcer covered with heavy bandage at present Results Laboratory Results: 06/29/16 02:50 Buttocks - Decubitis Ulcer Gram Stain - Final 06/29/16 02:50 Buttocks - Decubitis Ulcer Wound Culture - Final Enterococcus Faecalis(Group D) Providencia Stuartii Prevotella Species Skin Claudia Bacteroides Species Assessment & Plan - Diagnosis (1) Sacral decubitus ulcer, stage IV Is this a current diagnosis for this admission?: Yes (2) Altered mental state Qualifiers: Altered mental status type: transient alteration of awareness Qualified Code(s): R40.4 - Transient alteration of awareness Is this a current diagnosis for this admission?: Yes (3) Hypokalemia Is this a current diagnosis for this admission?: Yes (4) UTI (urinary tract infection) Qualifiers: Urinary tract infection type: acute cystitis Hematuria presence: with hematuria Qualified Code(s): N30.01 - Acute cystitis with hematuria Is this a current diagnosis for this admission?: Yes (5) Fistula into joint Is this a current diagnosis for this admission?: Yes (6) Discharge planning issues Is this a current diagnosis for this admission?: Yes (7) Septic shock Is this a current diagnosis for this admission?: Yes - Time Time Spent with patient: 15-24 minutes - Plan Summary Plan Summary: she is very slow to recover, still very weak even to the point that she can't get to bedside commode and is requiring continued johnson catheter in an effort to facilitate wound healing. very difficult to find an end point here, truthfully I fear she is giving up and losing interest in continuing on. I think this may be as good as it gets for her and at any point after discharge to SNF she would meet criteria to send her back to the ED. I believe her fci prognosis is very poor and declining.
[2016-07-04] MEDS: SODIUM HYPOCHLORITE 0.25% SOLN 473 ML BOTTLE TP SCH ×2 (14:24→18:35)
[2016-07-04] MEDS: TRAMADOL HCL 50 MG TABLET PO PRN ×2 (14:26→20:42)
[2016-07-04] MEDS: RIVAROXABAN 10 MG TABLET PO SCH (18:32)
[2016-07-04] MEDS: MIRTAZAPINE 15 MG TABLET PO SCH (22:04)
[2016-07-04] MEDS: RISPERIDONE 1 MG TABLET PO SCH (22:04)
[2016-07-04] MEDS: ATORVASTATIN CALCIUM 10 MG TABLET PO SCH (22:04)
[2016-07-05] MEDS: LANSOPRAZOLE 30 MG TAB.RAP.DR PO SCH (05:19)
[2016-07-05] MEDS: TRAMADOL HCL 50 MG TABLET PO PRN ×2 (05:19→14:05)
[2016-07-05] MEDS: GABAPENTIN 300 MG CAPSULE PO SCH ×2 (05:19→14:06)
[2016-07-05] MEDS: ACETAMINOPHEN 325 MG TABLET PO SCH ×2 (05:33→14:06)
[2016-07-05 06:39] LABS: ABSOLUTE EOSINOPHILS # (AUTO) 0.2 10^3/uL (0.0-0.6); ABSOLUTE MONOCYTES (AUTO) 0.9 10^3/uL (0.1-1.4); ABSOLUTE NEUT (AUTO) 5.2 10^3/uL (1.7-8.2); BASOPHILS % (AUTO) 0.5 % (0-2); EOSINOPHILS % (AUTO) 2.7 % (0-6); HEMATOCRIT 32.1 % (36.0-47.0); HEMOGLOBIN 10.4 g/dL (12.0-15.5); HGB HCT DIFFERENCE -0.9; LYMPHOCYTES % (AUTO) 23.2 % (13-45); MEAN CORPUSCULAR HEMOGLOBIN 26.5 pg (27.0-33.4); MEAN CORPUSCULAR HGB CONC 32.3 g/dL (32.0-36.0); MEAN CORPUSCULAR VOLUME 82 fl (80-97); MONOCYTES % (AUTO) 11.1 % (3-13); RED BLOOD COUNT 3.91 10^6/uL (3.72-5.28); RED CELL DISTRIBUTION WIDTH 16.9 % (11.5-14.0); SEGMENTED NEUTROPHILS % (AUTO) 62.5 % (42-78); WHITE BLOOD COUNT 8.4 10^3/uL (4.0-10.5)
[2016-07-05 06:53] LABS: ANION GAP 5 (5-19); BLOOD UREA NITROGEN 12 mg/dL (7-20); CALCIUM 8.4 mg/dL (8.4-10.2); CARBON DIOXIDE 36 mmol/L (22-30); CHLORIDE 102 mmol/L (98-107); CREATININE RESULT 0.43 mg/dL (0.52-1.25); GLUCOSE 88 mg/dL (75-110); SODIUM 143.1 mmol/L (137-145)
--- NOTE | 2016-07-05 10:39 | PDOC TRANSFER SUMMARY ---
General - Admit/Disc Date/PCP Admission Date/Primary Care Provider: 06/27/16 11:52 PAM WEBB, Discharge Date: 07/05/16 - Discharge Diagnosis (1) Sacral decubitus ulcer, stage IV Is this a current diagnosis for this admission?: YesSummary: s/p surgical debridement; f/u with wound care as outpt, continue current dressing changes at SNF (2) Altered mental state Is this a current diagnosis for this admission?: YesSummary: 2/2 sepsis from the infection; resolved and back to baseline (3) Hypokalemia Is this a current diagnosis for this admission?: YesSummary: continue replacement therapy and f/u as outpt (4) UTI (urinary tract infection) Is this a current diagnosis for this admission?: YesSummary: MDR E Coli and now with diverting indwelling johnson, continue rocephin IM for another 10d and work on building her strength enough to allow transfers for toileting and johnson removal. (5) Fistula into joint Is this a current diagnosis for this admission?: YesSummary: continue daily iodoform packing and dressing changes to prevent closure (6) Discharge planning issues Is this a current diagnosis for this admission?: Yes (7) Septic shock Is this a current diagnosis for this admission?: YesSummary: 2/2 UTI, resolved - Additional Information Resuscitation Status: Do Not Resuscitate Discharge Diet: As Tolerated Discharge Activity: Slowly Increase Activity, Supervised Activity Home Medications: Atorvastatin Calcium [Lipitor 10 mg Tablet] 10 mg PO QHS 06/20/16 Cetirizine HCl [Zyrtec 10 mg Tablet] 1 tab PO DAILYP PRN 06/20/16 Dexlansoprazole [Dexilant 60 mg Capsule] 60 mg PO DAILY 06/20/16 Escitalopram Oxalate [Lexapro 10 mg Tablet] 10 mg PO DAILY 06/20/16 Gabapentin [Neurontin 300 mg Capsule] 300 mg PO BID 06/20/16 Tolterodine Tartrate [Detrol] 2 mg PO BID 06/20/16 Umeclidinium Brm/Vilanterol Tr [Anoro Ellipta 62.5-25 Mcg INH] 1 puff IH DAILY 06/20/16 Fluticasone Propionate [Flonase Nasal [place] 50 Mcg/[place] 16 gm] 1 spray NASL BID 06/21/16 Cyanocobalamin (Vitamin B-12) [Vitamin B-12] 2,000 mcg PO DAILY #30 tablet 06/25 Bupropion HCl [Wellbutrin Sr 150 mg Tablet] 450 mg PO QAM 06/27/16 Docusate Sodium [Dok] 100 mg PO BID 06/27/16 Acetaminophen [Tylenol 325 mg Tablet] 650 mg PO Q6H tablet 07/03/16 Aztreonam 1 gm IJ DAILY #10 vial 07/03/16 Fentanyl [Duragesic 25 mcg/hr Transdermal Patch] 1 each TD Q3DAYS #2 patch.td72 07/03/16 Mirtazapine [Remeron 15 mg Tablet] 7.5 mg PO QHS #14 tablet 07/03/16 Oxycodone HCl/Acetaminophen [Percocet 5-325 mg Tablet] 1 tab PO Q4HP PRN #20 tablet 07/03/16 Risperidone [Risperdal 1 mg Tablet] 1 mg PO QHS #14 tablet 07/03/16 Rivaroxaban [Xarelto 10 mg Tablet] 20 mg PO WSUPPER tablet 07/03/16 Tramadol HCl [Ultram 50 mg Tablet] 50 mg PO Q4HP PRN #14 tablet 07/03/16 History of Present Illness Admission Date/PCP: 06/27/16 11:52 PAM WEBB, Patient complains of: progressive weakness and AMS History of Present Illness: ANGELIC HOUGH is a 75 year old female chronically debilitated, bedbound , recently discharged from [facility] was brought with altered mentation In the ED she was diagnosed of UTI - sepsis subsequently admitted to medical unit under Hospitalist service Patient is DNR - no pressors She was managed with IV fluids , azactam and Vancomycin. the a sacral decubitus was debrided today by Dr Cabrera and we decreased the fentanyl patch, and adjusted psych medications which were prepped prescribed prior We feel strongly that patient was overmedicated and it may explain partly the altered mental status on admission For instance patient was on 4 mg Risperdal at night, 450 mg of bupropion, 50 mg trazodone... " Hospital Course Hospital Course: she was found to have MDR E Coli UTI and started on aztreonam but is still requiring johnson catheter to divert from sacral wound as she is still too weak to toilet on her own; therefore she should continue abx for another 10d and work on johnson removal at SNF/Rehab center. she had a stage 4 sacral wound on presentation that required surgical debridement and ongoing dressing changes; ideally she should be followed at outpt wound care clinic. The above Rocephin will cover many of the organisms identified on wound culture as well. The patient's mental state seems to have returned to baseline according to family at the bedside. She is back to the mental condition when I saw her last admission. she appears a bit fluid overloaded at present with developing pedal edema and third spacing noted but that has improved with cessation of IVFs. defer to facility MD regarding maintaining euvolemia going forward. she is to f/u with PCP or facility MD in one week; return to the ED for worsening condition; f/u wound care clinic as her condition will allow otherwise continue wound care at the facility per their protocol. she is stable for transfer at this time. Rx's placed on chart for controlled substances. she is ready to go and expresses no concerns to me about leaving today. Physical Exam Vital Signs: Temp Pulse Resp BP Pulse Ox 98.2 F 72 18 107/60 97 07/05/16 08:00 07/05/16 08:00 07/05/16 08:00 07/05/16 08:00 07/05/16 08:00 Intake & Output 07/04/16 07/05/16 07/06/16 06:59 06:59 06:59 Intake Total 690 950 Output Total 2700 2300 Balance -2009 -1350 Weight 77.5 kg 78.9 kg EXAM GENERAL: NAD; well developed, well nourished; no obese; alert and oriented to person, place, situation HEENT: normocephalic, atraumatic; no conjunctival injection, no scleral icterus ; oral mucosa dry; RESPIRATORY: no accessory muscle use, no increased WOB, good air entry bilaterally; no wheezes, rhonchi; crackles at the bases CARDIO: RRR; soft systolic murmur; no tachycardia GI: soft; nondistended; normal bowel sounds; no rebound, rigidity, guarding; nontender VASCULAR: no pallor; 2+ radial, DP pulse; normal capillary refill EXTREMITIES: no calf tender; no palpable cords in calf; no clubbing, cyanosis ; trace bilateral pedal edema; left lateral knee has persistent fistula track draining creamy white fluid iodoform packing and bandage in place, no surrounding erythema or cellulitis PSYCH: Flat affect, normal mood SKIN: warm; moist; no petechiae; no telengectasias; no jaundice; stage IV sacral decubitus ulcer covered with heavy bandage at present Results Laboratory Results: 07/05/16 05:31 07/05/16 05:31 07/05/16 07/05/16 05:31 05:31 WBC 8.4 RBC 3.91 Hgb 10.4 L Hct 32.1 L MCV 82 MCH 26.5 L MCHC 32.3 RDW 16.9 H Plt Count 291 Seg Neutrophils % 62.5 Lymphocytes % 23.2 Monocytes % 11.1 Eosinophils % 2.7 Basophils % 0.5 Absolute Neutrophils 5.2 Absolute Lymphocytes 2.0 Absolute Monocytes 0.9 Absolute Eosinophils 0.2 Absolute Basophils 0.0 Sodium 143.1 Potassium 4.0 Chloride 102 Carbon Dioxide 36 H Anion Gap 5 BUN 12 Creatinine 0.43 L Est GFR ( Amer) > 60 Est GFR (Non-Af Amer) > 60 Glucose 88 Calcium 8.4 Impressions: Chest X-Ray 06/27/16 08:57 IMPRESSION: Cardiomegaly, similar to prior study. No focal infiltrates identified. Study is somewhat limited due to patient positioning. Transfer Plan - Disposition Transfer Plan: off to [facility] for rehab, strength training, bladder training for johnson removal and wound care - Time Spent with Patient Time spent with patient: Greater than 30 Minutes Qualifiers PATEINT BEING DISCHARGED WITH ANY OF THE FOLLOWING DIAGNOSIS?: No VTE patient discharged on overlapping Therapy?: No Reason(s) for not prescribing Overlap Therapy:: Not indicated
[2016-07-05] MEDS: POTASSIUM CHLORIDE 10 MEQ TABLET.SA PO SCH (10:40)
[2016-07-05] MEDS: DOCUSATE SODIUM 100 MG CAPSULE PO SCH (10:40)
[2016-07-05] MEDS: TOLTERODINE TARTRATE 1 MG TABLET PO SCH (10:40)
[2016-07-05] MEDS: BUPROPION HCL 75 MG TABLET PO SCH (10:40)
[2016-07-05] MEDS: ESCITALOPRAM OXALATE 10 MG TABLET PO SCH (10:40)
[2016-07-05] MEDS: CYANOCOBALAMIN (VITAMIN B-12) 1,000 MCG TABLET PO SCH (10:41)
[2016-07-05] MEDS: SODIUM HYPOCHLORITE 0.25% SOLN 473 ML BOTTLE TP SCH (10:41)
[2016-07-05] MEDS: FLUTICASONE NASAL SPRAY 50 MCG/SPRY 120 SPRAY/16 GM NASL SCH (10:41)
[2016-07-05 13:07] VITALS: BP 119/56
== END 2016-07-05 16:44 | DRG 853 ==
LOC: ER 08:56 → EH 11:52 → UNDOADMIN 13:07 → EH 13:07 → 4N 14:44
PROVIDERS: ADMIT Emergency Medicine; ATTEND Emergency Medicine
PROC: 0JD70ZZ Extraction of Back Subcutaneous Tissue and Fascia, Open Approach (ICD-10-PCS; principal; 2016-07-01)
DX: A41.9 Sepsis, unspecified organism (principal); L89.154 Pressure ulcer of sacral region, stage 4; N30.01 Acute cystitis with hematuria; E87.6 Hypokalemia; M25.10 Fistula, unspecified joint; L89.152 Pressure ulcer of sacral region, stage 2; R65.20 Severe sepsis without septic shock; B96.20 Unspecified Escherichia coli [E. coli] as the cause of diseases classified elsewhere; Z66 Do not resuscitate; E66.9 Obesity, unspecified; Z68.25 Body mass index [BMI] 25.0-25.9, adult; I50.9 Heart failure, unspecified; E78.5 Hyperlipidemia, unspecified; J44.9 Chronic obstructive pulmonary disease, unspecified; K21.9 Gastro-esophageal reflux disease without esophagitis; M19.90 Unspecified osteoarthritis, unspecified site; F32.9 Major depressive disorder, single episode, unspecified; D64.9 Anemia, unspecified; B95.2 Enterococcus as the cause of diseases classified elsewhere; Z79.899 Other long term (current) drug therapy; Z74.01 Bed confinement status; Z90.49 Acquired absence of other specified parts of digestive tract; Z90.710 Acquired absence of both cervix and uterus; Z88.6 Allergy status to analgesic agent; Z88.1 Allergy status to other antibiotic agents; Z88.8 Allergy status to other drugs, medicaments and biological substances
CPT/HCPCS: 36415; 71010; 80048; 80053; 81001; 82803; 83605; 83735; 85025; 85610; 87040; 87070; 87075; 87077; 87086; 87088; 87186; 87205; 87493; 93005; 93010; 96360; 96361; 99285; G8978-GP; G8979-GP; J0696; J1650; J3370; J3490; J7030; J7060; P9047

== ENCOUNTER → 2016-07-26 | Outpatient (CLI) | payer MEDICAID, MEDICARE | LOC: RAD 11:06 | PROVIDERS: ATTEND Internal Medicine | DX: L89.159 Pressure ulcer of sacral region, unspecified stage (principal) | CPT/HCPCS: 72195 ==

== ENCOUNTER → 2016-11-04 | Outpatient (CLI) | payer MEDICARE ==
--- NOTE | 2016-11-04 11:21 | RADIOLOGY REPORT (SQ) ---
EXAM DESCRIPTION: MRI PELVIS COMBO COMPLETED DATE/TIME: 11/04/2016 8:40 am REASON FOR STUDY: PRESSURE ULCER OF SACRAL REGION, STAGE 4 (L89.154) L89.154 PRESSURE ULCER OF SACR AL REGION, STAGE 4 COMPARISON: 07/26/2016 TECHNIQUE: Multiplanar imaging of the sacrum and coccyx to include T1-weighted, postcontrast T1-weig hted, and T2-weighted images. CONTRAST TYPE AND DOSE: 20 mL Prohance. RENAL FUNCTION: GFR > 60. LIMITATIONS: None. FINDINGS: BONE MARROW: Signal alteration with cortical loss of the leftward S4, S5, and C1 segments. The distal coccyx is normal. Adjacent fluid and direct extension to the nguyen. SOFT TISSUES: There is no focal soft tissue abscess. OTHER: Trotter catheter in the bladder. IMPRESSION: Direct extension osteomyelitis of the leftward S4, as 5, and coccyx 1 segments. Overall degree of edema appears improved over the previous study. No soft tissue abscess. TECHNICAL DOCUMENTATION: JOB ID: [id number] [employer]- All Rights Reserved
== END ==
LOC: RAD 10-30 09:53
PROVIDERS: ATTEND Surgery
DX: L89.154 Pressure ulcer of sacral region, stage 4 (principal); M46.28 Osteomyelitis of vertebra, sacral and sacrococcygeal region
CPT/HCPCS: 82565; 72197; A9576

== ENCOUNTER → 2016-12-26 | Outpatient (CLI) | payer MEDICARE, MEDICAID ==
--- NOTE | 2016-12-26 12:15 | RADIOLOGY REPORT (SQ) ---
EXAM DESCRIPTION: MRI PELVIS COMBO COMPLETED DATE/TIME: 12/26/2016 9:56 am REASON FOR STUDY: CHRONIC MULTIFOCAL OSTEOMYELITIS, OTHER M86.38 CHRONIC MULTIFOCAL OSTEOMYELITIS, OTHER SITE COMPARISON: MRI pelvis 11/04/2016, 07/25/2010 17 TECHNIQUE: Multiplanar multisequence imaging performed without and with contrast including axial, sa gittal and coronal T2, axial T, axial gradient fat sat T1, axial, sagittal and coronal fat sat T2 pos t contrast. CONTRAST TYPE AND DOSE: 20 mL Multihance. RENAL FUNCTION: GFR > 60. LIMITATIONS: None. FINDINGS: There is a persistent sacral decubitus ulcer just to the left of midline, best shown on ax ial postcontrast T1 fat-sat image 21. Ulcer measures 3 cm craniocaudad by 0.8 cm transverse. There is surrounding enhancing granulation tissue. Overall, the size of the ulcer is smaller than on both previous studies. There is persistent marrow edema and enhancement along the leftward half of the sacrum at the S4 and S5 levels. Normal coccyx signal. This is best shown on axial image 25 and coronal image 19. No soft tissue abscess. No presacral inflammation. Remainder of the visualized bony pelvis is unrem arkable aside from bilateral SI joint sclerosis. There is a Trotter catheter draining the bladder. Patient is post hysterectomy. IMPRESSION: Decrease in size of the sacral decubitus ulcer compared to both prior studies. Persistent mild edema and contrast enhancement in the leftward half of the S4 and S5 levels. This le ss prominent than on previous studies. TECHNICAL DOCUMENTATION: JOB ID: [id number] [employer]- All Rights Reserved
== END ==
LOC: RAD 08:10
PROVIDERS: ATTEND Surgery
DX: M86.38 Chronic multifocal osteomyelitis, other site (principal); L89.154 Pressure ulcer of sacral region, stage 4
CPT/HCPCS: 82565; 72197; A9576

== ENCOUNTER → 2017-02-17 | Outpatient (CLI) | payer MEDICARE, MEDICAID ==
--- NOTE | 2017-02-17 17:20 | RADIOLOGY REPORT (SQ) ---
EXAM DESCRIPTION: MRI PELVIS COMBO COMPLETED DATE/TIME: 02/17/2017 10:53 am REASON FOR STUDY: CHR MULTIFOCAL OSTEOMYELITIS OTHER SITE M86.38 CHRONIC MULTIFOCAL OSTEOMYELITIS, OTHER SITE COMPARISON: 12/26/2016 TECHNIQUE: Multiplanar multisequence imaging performed without and with contrast including axial, sa gittal and coronal T2, axial T, axial gradient fat sat T1, axial, sagittal and coronal fat sat T2 pos t contrast. CONTRAST TYPE AND DOSE: 20 mL Prohance. RENAL FUNCTION: GFR > 60. LIMITATIONS: Motion. FINDINGS: Interval improvement of sacral decubitus with decrease in the size of the defect. Residua l edema in the adjacent sacrococcygeal junction. No cortical breakthrough. No organized fluid colle ction. IMPRESSION: Healing sacral decubitus. TECHNICAL DOCUMENTATION: JOB ID: [id number] [employer]- All Rights Reserved
== END ==
LOC: RAD 09:13
PROVIDERS: ATTEND Surgery
DX: M86.38 Chronic multifocal osteomyelitis, other site (principal)
CPT/HCPCS: 82565; 72197; A9576

== ENCOUNTER → 2017-06-27 | Outpatient (CLI) | payer MEDICARE, MEDICAID ==
[2017-06-27 08:21] LABS: ABSOLUTE BASOPHILS # (AUTO) 0.1 10^3/uL (0.0-0.2); ABSOLUTE EOSINOPHILS # (AUTO) 0.3 10^3/uL (0.0-0.6); ABSOLUTE LYMPHOCYTES (AUTO) 3.3 10^3/uL (0.5-4.7); ABSOLUTE MONOCYTES (AUTO) 0.9 10^3/uL (0.1-1.4); ABSOLUTE NEUT (AUTO) 5.9 10^3/uL (1.7-8.2); BASOPHILS % (AUTO) 0.7 % (0-2); EOSINOPHILS % (AUTO) 2.5 % (0-6); HEMATOCRIT 42.4 % (36.0-47.0); HEMOGLOBIN 13.6 g/dL (12.0-15.5); LYMPHOCYTES % (AUTO) 31.2 % (13-45); MEAN CORPUSCULAR HEMOGLOBIN 26.7 pg (27.0-33.4); MEAN CORPUSCULAR HGB CONC 32.2 g/dL (32.0-36.0); MEAN CORPUSCULAR VOLUME 83 fl (80-97); MONOCYTES % (AUTO) 8.9 % (3-13); PLATELET COUNT 392 10^3/uL (150-450); RED BLOOD COUNT 5.11 10^6/uL (3.72-5.28); SEGMENTED NEUTROPHILS % (AUTO) 56.7 % (42-78); TOTAL CELLS COUNTED % (AUTO) 100 %; WHITE BLOOD COUNT 10.4 10^3/uL (4.0-10.5)
[2017-06-27 08:58] LABS: ALANINE AMINOTRANSFERASE 25 U/L (9-52); ALBUMIN 2.8 g/dL (3.5-5.0); ALKALINE PHOSPHATASE 109 U/L (38-126); ANION GAP 7 (5-19); ASPARTATE AMINO TRANSFERASE 19 U/L (14-36); BILIRUBIN,DIRECT 0.1 mg/dL (0.0-0.4); BILIRUBIN,TOTAL 0.5 mg/dL (0.2-1.3); BLOOD UREA NITROGEN 15 mg/dL (7-20); CALCIUM 8.8 mg/dL (8.4-10.2); CARBON DIOXIDE 37 mmol/L (22-30); CHLORIDE 101 mmol/L (98-107); CHOLESTEROL 88.62 mg/dL (0-200); GLUCOSE 102 mg/dL (75-110); POTASSIUM 3.3 mmol/L (3.6-5.0); SODIUM 144.5 mmol/L (137-145); TRIGLYCERIDES 68 mg/dL (<150)
[2017-06-27 09:09] LABS: DIRECT LDL 40 mg/dL (<100)
--- NOTE | 2017-06-27 09:11 | RADIOLOGY REPORT (SQ) ---
EXAM DESCRIPTION: CHEST PA/LATERAL COMPLETED DATE/TIME: 06/27/2017 7:54 am REASON FOR STUDY: CHRONIC OBSTRUCTIVE PULMONARY DISEASE, UNSPECIFIED,COUGH COMPARISON: June 2016 EXAM PARAMETERS: NUMBER OF VIEWS: two views TECHNIQUE: Digital Frontal and Lateral radiographic views of the chest acquired. RADIATION DOSE: NA LIMITATIONS: Patient has made a shallow inspiration. FINDINGS: LUNGS AND PLEURA: No opacities, masses or pneumothorax. No pleural effusion. MEDIASTINUM AND HILAR STRUCTURES: No masses or contour abnormalities. HEART AND VASCULAR STRUCTURES: Cardiac silhouette is at the upper limits of normal in size. Tortuous thoracic aorta is identified. BONES: No acute findings. HARDWARE: Multiple surgical clips are identified in the left upper quadrant OTHER: No other significant finding. IMPRESSION: NO SIGNIFICANT RADIOGRAPHIC FINDING IN THE CHEST. TECHNICAL DOCUMENTATION: JOB ID: [id number] [employer]- All Rights Reserved Reading location - IP/workstation name: [email or web address]
== END ==
LOC: OD 07:07
PROVIDERS: ATTEND Family Medicine Geriatric Medicine
DX: J44.9 Chronic obstructive pulmonary disease, unspecified (principal); R05 Cough; E78.5 Hyperlipidemia, unspecified; K21.0 Gastro-esophageal reflux disease with esophagitis; E53.9 Vitamin B deficiency, unspecified; Z79.899 Other long term (current) drug therapy
CPT/HCPCS: 36415; 71046; 80053; 80061; 82607; 84443; 85025